=== PATIENT | female | born 1985 | race Asian ===

== ENCOUNTER 2025-04-28 11:10 | Inpatient (IN) ==
[2025-04-28] MEDS ORDERED: OXYTOCIN 30 UNITS/NSS 30 UNITS/500 ML BAG IV PRN (12:02)
[2025-04-28] MEDS ORDERED: LIDOCAINE 1% LOCAL 20 ML VIAL INFIL PRN (12:02)
[2025-04-28 12:37] LABS: Hematocrit (blood only) 32.8 % (37.0-47.0); Hemoglobin 11.2 g/dL (12.0-16.0); Mean Corpuscular Hemoglobin 30.6 pg (25.0-34.0); Mean Corpuscular Volume 89.6 fL (80.0-100.0); Platelet Count 163 K/uL (130-400); RDW Standard Deviation 40.3 fL (36.4-46.3); Red Blood Count 3.66 M/uL (4.20-5.40); White Blood Count 9.48 K/ul (4.8-10.8)
--- NOTE | 2025-04-28 13:05 | Procedure Note ---
Procedure Note Date of Service April 28, 2025 monitoring was used to ensure reassuring status. The patient was verbally consented for placement of a turner for cervical ripening, with discussion of risks, benefits and alternatives. All her questions were answered. Her legs were placed in lithotomy position. A lubricated, gloved hand was used to examine the cervix. A stylet was lubricated and inserted into a turner catheter to give it stiffness, and the turner catheter was then advanced along my fingers until it reached the external cervical os. The turner was then fed forward off of the stylet, which was itself never moved beyond the external os, such that the soft catheter advanced into the uterine cavity outside of the amnion until the balloon was definitely above the internal cervical os. The balloon was then inflated using sterile water to 30cc volume. Gentle traction was used to seat the balloon downward against the internal cervical os. Cervix was FT/TH/HI. EFW 6-7lb. My hand and the stylet were removed from the vagina, and the turner was secured to the patient's leg with a standard turner holding sticker. There was no significant bleeding or leakage of fluid. The heart tones remained reassuring after this process, which the patient tolerated well. Coding Additional Codes Date of Service ([email or web address])
[2025-04-28] MEDS: LACTATED RINGER'S 1,000 ML IV PRN (13:35)
[2025-04-28] MEDS: OXYTOCIN 30 UNITS/NSS 30 UNITS/500 ML BAG IV PRN (13:36)
[2025-04-28] MEDS ORDERED: LIDOCAINE 2%/EPINEPHRINE 1:200,000 20 ML PF ONE (18:40)
[2025-04-28] MEDS ORDERED: BUPIVACAINE 0.25% PF 30 ML VIAL ONE (18:40)
[2025-04-28] MEDS ORDERED: SODIUM CHLORIDE 0.9% PF INJ 10 ML VIAL EPI PRN (18:41)
[2025-04-28] MEDS ORDERED: ROPIVACAINE 0.5% PF 5 MG/ML 20 ML VIAL EPI PRN (18:41)
[2025-04-28] MEDS ORDERED: NALBUPHINE HCL INJ 10 MG/ML AMP IV PRN (18:41)
[2025-04-28] MEDS ORDERED: diphenhydrAMINE 50 MG/ML VIAL IV PRN (18:41)
[2025-04-28] MEDS ORDERED: LIDOCAINE 2% MPF LOCAL 5 ML VIAL EPI PRN (18:41)
[2025-04-28] MEDS ORDERED: BUPIVACAINE 0.25% PF 30 ML VIAL EPI PRN (18:41)
[2025-04-28] MEDS ORDERED: NALOXONE HCL 0.4 MG/1 ML VIAL/CARP IV PRN (18:41)
[2025-04-28] MEDS ORDERED: NALOXONE HCL 1 MG in SODIUM CHLORIDE 0.9% 1,000 ML IV PRN (18:41)
--- NOTE | 2025-04-28 18:41 | Anesthesiology Consultation ---
Date of Service April 28, 2025 Assessment & Plan (1) Encounter for pre-operative examination: Chart Review Chart Review: Patient NOT seen in Pre Admission Testing and Acceptable Risk for Labor Epidural Consults Requested none History Height/Weight Height: 5 ft 3.78 in Weight: 75.389 kg Allergies Allergy/AdvReac Type Severity Reaction Status Date / Time No Known Allergies Allergy Verified 04/28/25 12:29 Medications Home Medications Medication Instructions Recorded Confirmed Last Taken triamcinolone acetonide 0.1 % 1 applic topical DAILY #15 grams 12/21/24 04/27/25 Unknown topical cream gwqorutu-[id number]-FA 1 mg 1 tab PO DAILY 04/28/25 04/28/25 04/27/25 tablet Active Medications Generic Name Dose Route Start Last Admin Trade Name Freq PRN Reason Stop Dose Admin Oxytocin 30 units in 500 mls @ 2 mls/hr 04/28/25 12:02 04/28/25 18:10 Pitocin 30 Units/Nss IV 04/30/25 12:01 0.12 units/hr .Q24H PRN 2 mls/hr Labor Induction/Augmentation Titration Protocol 0.12 UNITS/HR Lactated Ringer's 1,000 mls @ 125 mls/hr 04/28/25 12:02 04/28/25 18:34 Lr IV 04/30/25 12:01 999 mls/hr .Q8H PRN Administration L&D Protocol Protocol Past Medical History Medical History Ovarian cyst Migraine No significant past medical history PT DENIES SIGNIFICANT PAST MED HX Past Family History Family History Mother No problems noted. Denies family history of Ovarian cancer Prostate cancer Breast cancer Colorectal cancer Uterine cancer Past Surgical History Surgical History History of gynecologic surgery surgery in [place] for "ovary" S/P dilation and curettage hysteroscopy, polypectomy Social History Smoking Status: Never smoker Do You Dip or Chew Tobacco: No Hx Alcohol Use: No Hx Substance Use: No substance use type: does not use Physical Exam Vital Signs Last Vital Signs Temp 98.6 F 04/28/25 15:30 Pulse 78 04/28/25 18:38 Resp 18 04/28/25 15:30 BP 107/61 04/28/25 18:27 Pulse Ox 98 04/28/25 18:38 Testing Laboratory Results 04/28/25 12:14
[2025-04-28] MEDS: fentANYL 2 MCG/ML BUPIVacaine 0.125%-NSS 100ML BAG EPI PRN (19:08)
[2025-04-28] MEDS: BUPIVACAINE 0.25% PF 30 ML VIAL EPI STA (19:10)
[2025-04-28] MEDS: LIDOCAINE 2%/EPINEPHRINE 1:200,000 20 ML PF EPI STA (19:10)
[2025-04-28] MEDS: fentANYL 2 MCG/ML BUPIVacaine 0.125%-NSS 100ML BAG ONE (19:53)
--- NOTE | 2025-04-29 03:03 | Obstetrical Progress Note ---
Date of Service April 29, 2025 Assessment & Plan (1) Encounter for induction of labor: Plan Continue pitocin. Goal MVU 200-250. Cont epidural, pt comfortable. Admission and Anticipated Discharge Date Admission Date: April 28, 2025 Subjective Patient's turner came out around the time her epidural went in, and pitocin was then raised to 18 per protocol. Contractions have been difficult to track per RN. IUPC requested. Physical Exam Genitourinary: /-2 LOF clear / small bloody show FHT Cat 1 [place] Q2-3, MVU appear adequate Pit @ 18 Results & Data Vital Signs (Past 12 Hours) Vital Signs Temp Pulse Resp BP Pulse Ox 04/29/25 02:58 83 98 04/29/25 02:53 80 99 04/29/25 02:48 100 04/29/25 02:48 85 04/29/25 02:48 73 89/55 L 04/29/25 02:43 78 95 04/29/25 02:38 77 96 04/29/25 02:33 81 96 04/29/25 02:32 83 94/52 L 04/29/25 02:28 85 99 04/29/25 02:23 77 98 04/29/25 02:19 75 93/52 L 04/29/25 02:18 75 98 04/29/25 02:13 76 98 04/29/25 02:08 75 98 04/29/25 02:03 74 98 04/29/25 02:02 75 93/55 L 04/29/25 01:58 77 97 04/29/25 01:53 76 98 04/29/25 01:48 98 04/29/25 01:48 75 04/29/25 01:48 72 88/50 L 04/29/25 01:43 77 98 04/29/25 01:38 77 97 04/29/25 01:33 97 04/29/25 01:33 88 04/29/25 01:33 83 96/55 L 04/29/25 01:28 78 95 04/29/25 01:23 75 98 04/29/25 01:19 81 92/50 L 04/29/25 01:18 78 98 04/29/25 01:13 85 98 04/29/25 01:08 80 97 04/29/25 01:06 77 92/47 L 04/29/25 01:03 91 H 98 04/29/25 00:58 74 97 04/29/25 00:53 86 98 04/29/25 00:49 75 103/53 L 04/29/25 00:48 75 98 04/29/25 00:43 73 97 04/29/25 00:38 77 98 04/29/25 00:33 73 97 04/29/25 00:32 74 103/55 L 04/29/25 00:28 76 96 04/29/25 00:23 74 96 04/29/25 00:18 72 108/58 L 99 04/29/25 00:13 72 96 04/29/25 00:08 73 97 04/29/25 00:03 98 04/29/25 00:03 74 04/29/25 00:03 76 96/57 L 04/28/25 23:58 79 98 04/28/25 23:53 78 98 04/28/25 23:48 98 04/28/25 23:48 77 04/28/25 23:48 73 113/59 L 04/28/25 23:43 77 99 04/28/25 23:38 75 98 04/28/25 23:35 71 112/59 L 04/28/25 23:33 76 97 04/28/25 23:28 75 97 04/28/25 23:23 95 H 97 04/28/25 23:18 98 04/28/25 23:18 75 04/28/25 23:18 73 101/50 L 04/28/25 23:13 76 99 04/28/25 23:08 89 100 04/28/25 23:04 74 99/58 L 04/28/25 23:03 76 99 04/28/25 23:02 18 04/28/25 23:02 99.1 F 18 04/28/25 22:58 73 98 04/28/25 22:53 78 99 04/28/25 22:48 77 99 04/28/25 22:43 75 98 04/28/25 22:38 76 99 04/28/25 22:33 76 103/54 L 98 04/28/25 22:28 84 98 04/28/25 22:23 75 98 04/28/25 22:18 99 04/28/25 22:18 73 04/28/25 22:18 75 101/58 L 04/28/25 22:13 74 100 04/28/25 22:08 76 99 04/28/25 22:03 80 98 04/28/25 21:58 76 97 04/28/25 21:53 74 98 04/28/25 21:48 73 98 04/28/25 21:43 77 98 04/28/25 21:38 74 99 04/28/25 21:34 71 103/57 L 04/28/25 21:33 72 98 04/28/25 21:28 73 97 04/28/25 21:23 96 H 98 04/28/25 21:18 99 04/28/25 21:18 76 04/28/25 21:18 73 104/61 04/28/25 21:13 73 98 04/28/25 21:08 74 99 04/28/25 21:03 68 104/55 L 98 04/28/25 20:58 75 100 04/28/25 20:53 73 100 04/28/25 20:48 70 100/52 L 100 04/28/25 20:43 73 99 04/28/25 20:38 79 100 04/28/25 20:33 77 100 04/28/25 20:32 71 107/61 04/28/25 20:28 74 99 04/28/25 20:23 78 98 04/28/25 20:18 75 99 04/28/25 20:17 74 108/57 L 04/28/25 20:13 71 97 04/28/25 20:08 79 97 04/28/25 20:03 77 98 04/28/25 20:02 75 104/58 L 04/28/25 19:58 75 97 04/28/25 19:53 71 97 04/28/25 19:48 78 97 04/28/25 19:47 80 101/56 L 04/28/25 19:43 78 101/57 L 98 04/28/25 19:38 82 99 04/28/25 19:37 71 100/57 L 04/28/25 19:33 98 04/28/25 19:33 79 04/28/25 19:33 74 104/60 04/28/25 19:28 78 98 04/28/25 19:26 80 110/65 12/12/25 19:25 76 105/59 L 04/28/25 19:23 77 98 04/28/25 19:22 82 106/60 04/28/25 19:20 79 102/61 04/28/25 19:18 82 107/64 96 04/28/25 19:17 76 102/55 L 04/28/25 19:15 99.0 F 18 04/28/25 19:15 77 104/54 L 04/28/25 19:13 87 98 04/28/25 19:12 89 98/55 L 04/28/25 19:11 76 107/53 L 04/28/25 19:09 90 103/61 04/28/25 19:08 90 97 04/28/25 19:06 90 103/64 04/28/25 19:03 83 99 04/28/25 18:58 83 100 04/28/25 18:48 80 99 04/28/25 18:43 82 98 04/28/25 18:38 78 98 04/28/25 18:33 79 98 04/28/25 18:28 80 99 04/28/25 18:27 81 107/61 04/28/25 15:32 83 100/57 L 04/28/25 15:30 18 04/28/25 15:30 98.6 F 18 PG Care Time/CCT Total # of Minutes Spent Total Time Spent with Patient: Total time spent is greater than 50% in coordination of care (as documented) at patient's floor/unit and/or counseling patient: Coding Level of Care Code None Diagnoses Encounter for induction of labor Z34.90
--- NOTE | 2025-04-29 06:46 | Labor Progress Brief Note ---
Date of Service April 29, 2025 Subjective Patient comfortable with epidural. Assessment & Plan (1) Encounter for induction of labor: Plan: Minimal cervical change. Multip patient. Forebag cleared. Cut pit in 05/19 and re-climb to adequate RVU. Admission and Anticipated Discharge Date Admission Date: April 28, 2025 Physical Exam Genitourinary: Cervix unchanged IUPC in place but forebag palpable, ruptured, clear Ctx frequency decreased though individual ctx strength still good FHT Cat 1 Pit @ 20 Results & Data Vital Signs (Past 12 Hours) Vital Signs Temp Pulse Resp BP Pulse Ox 04/29/25 06:38 79 98 04/29/25 06:33 99 04/29/25 06:33 80 04/29/25 06:33 78 84/50 L 04/29/25 06:28 79 96 04/29/25 06:23 76 96 04/29/25 06:18 76 97 04/29/25 06:17 75 90/55 L 04/29/25 06:13 81 98 04/29/25 06:08 69 96 04/29/25 06:03 75 97 04/29/25 06:02 70 93/51 L 04/29/25 06:00 18 04/29/25 06:00 99.0 F 18 04/29/25 05:58 70 97 04/29/25 05:56 70 93 04/29/25 05:53 72 96 04/29/25 05:49 70 89/53 L 04/29/25 05:48 69 98 04/29/25 05:43 70 96 04/29/25 05:38 72 97 04/29/25 05:34 68 89/52 L 04/29/25 05:33 67 97 04/29/25 05:28 71 96 04/29/25 05:23 70 96 04/29/25 05:18 70 95 04/29/25 05:17 68 94/50 L 04/29/25 05:13 70 96 04/29/25 05:08 71 96 04/29/25 05:03 70 97 04/29/25 05:02 68 94/51 L 04/29/25 04:58 69 97 04/29/25 04:53 70 95 04/29/25 04:48 96 04/29/25 04:48 71 04/29/25 04:48 71 97/56 L 04/29/25 04:43 73 96 04/29/25 04:38 71 97 04/29/25 04:33 73 98 04/29/25 04:29 75 94 04/29/25 04:28 76 95 04/29/25 04:23 73 95 04/29/25 04:18 72 95 04/29/25 04:17 73 104/56 L 04/29/25 04:13 71 96 04/29/25 04:08 72 97 04/29/25 04:04 69 101/56 L 04/29/25 04:03 70 98 04/29/25 04:00 18 04/29/25 04:00 98.8 F 18 04/29/25 03:58 71 96 04/29/25 03:53 73 96 04/29/25 03:48 71 97 04/29/25 03:47 68 98/54 L 04/29/25 03:43 72 96 04/29/25 03:38 72 97 04/29/25 03:33 98 04/29/25 03:33 71 04/29/25 03:33 70 99/55 L 04/29/25 03:28 73 96 04/29/25 03:23 71 97 04/29/25 03:18 71 100/59 L 98 04/29/25 03:13 74 97 04/29/25 03:08 79 98 04/29/25 03:04 88 144/64 H 04/29/25 03:03 89 98 04/29/25 02:58 83 98 04/29/25 02:53 80 99 04/29/25 02:48 100 04/29/25 02:48 85 04/29/25 02:48 73 89/55 L 04/29/25 02:43 78 95 04/29/25 02:38 77 96 04/29/25 02:33 81 96 04/29/25 02:32 83 94/52 L 04/29/25 02:28 85 99 04/29/25 02:23 77 98 04/29/25 02:19 75 93/52 L 04/29/25 02:18 75 98 04/29/25 02:13 76 98 04/29/25 02:08 75 98 04/29/25 02:03 74 98 04/29/25 02:02 75 93/55 L 04/29/25 01:58 77 97 04/29/25 01:53 76 98 04/29/25 01:48 98 04/29/25 01:48 75 04/29/25 01:48 72 88/50 L 04/29/25 01:43 77 98 04/29/25 01:38 77 97 04/29/25 01:33 97 04/29/25 01:33 88 04/29/25 01:33 83 96/55 L 04/29/25 01:28 78 95 04/29/25 01:23 75 98 04/29/25 01:19 81 92/50 L 04/29/25 01:18 78 98 04/29/25 01:13 85 98 04/29/25 01:08 80 97 04/29/25 01:06 77 92/47 L 04/29/25 01:03 91 H 98 04/29/25 00:58 74 97 04/29/25 00:53 86 98 04/29/25 00:49 75 103/53 L 04/29/25 00:48 75 98 04/29/25 00:43 73 97 04/29/25 00:38 77 98 04/29/25 00:33 73 97 04/29/25 00:32 74 103/55 L 04/29/25 00:28 76 96 04/29/25 00:23 74 96 04/29/25 00:18 72 108/58 L 99 04/29/25 00:13 72 96 04/29/25 00:08 73 97 04/29/25 00:03 98 04/29/25 00:03 74 04/29/25 00:03 76 96/57 L 04/28/25 23:58 79 98 04/28/25 23:53 78 98 04/28/25 23:48 98 04/28/25 23:48 77 04/28/25 23:48 73 113/59 L 04/28/25 23:43 77 99 04/28/25 23:38 75 98 04/28/25 23:35 71 112/59 L 04/28/25 23:33 76 97 04/28/25 23:28 75 97 04/28/25 23:23 95 H 97 04/28/25 23:18 98 04/28/25 23:18 75 04/28/25 23:18 73 101/50 L 04/28/25 23:13 76 99 04/28/25 23:08 89 100 04/28/25 23:04 74 99/58 L 04/28/25 23:03 76 99 04/28/25 23:02 18 04/28/25 23:02 99.1 F 18 04/28/25 22:58 73 98 04/28/25 22:53 78 99 04/28/25 22:48 77 99 04/28/25 22:43 75 98 04/28/25 22:38 76 99 04/28/25 22:33 76 103/54 L 98 04/28/25 22:28 84 98 04/28/25 22:23 75 98 04/28/25 22:18 99 04/28/25 22:18 73 04/28/25 22:18 75 101/58 L 04/28/25 22:13 74 100 04/28/25 22:08 76 99 04/28/25 22:03 80 98 04/28/25 21:58 76 97 04/28/25 21:53 74 98 04/28/25 21:48 73 98 04/28/25 21:43 77 98 04/28/25 21:38 74 99 04/28/25 21:34 71 103/57 L 04/28/25 21:33 72 98 04/28/25 21:28 73 97 04/28/25 21:23 96 H 98 04/28/25 21:18 99 04/28/25 21:18 76 04/28/25 21:18 73 104/61 04/28/25 21:13 73 98 04/28/25 21:08 74 99 04/28/25 21:03 68 104/55 L 98 04/28/25 20:58 75 100 04/28/25 20:53 73 100 04/28/25 20:48 70 100/52 L 100 04/28/25 20:43 73 99 04/28/25 20:38 79 100 04/28/25 20:33 77 100 04/28/25 20:32 71 107/61 04/28/25 20:28 74 99 04/28/25 20:23 78 98 04/28/25 20:18 75 99 04/28/25 20:17 74 108/57 L 04/28/25 20:13 71 97 04/28/25 20:08 79 97 04/28/25 20:03 77 98 04/28/25 20:02 75 104/58 L 04/28/25 19:58 75 97 04/28/25 19:53 71 97 04/28/25 19:48 78 97 04/28/25 19:47 80 101/56 L 04/28/25 19:43 78 101/57 L 98 04/28/25 19:38 82 99 04/28/25 19:37 71 100/57 L 04/28/25 19:33 98 04/28/25 19:33 79 04/28/25 19:33 74 104/60 04/28/25 19:28 78 98 04/28/25 19:26 80 110/65 04/28/25 19:25 76 105/59 L 04/28/25 19:23 77 98 04/28/25 19:22 82 106/60 04/28/25 19:20 79 102/61 04/28/25 19:18 82 107/64 96 04/28/25 19:17 76 102/55 L 04/28/25 19:15 99.0 F 18 04/28/25 19:15 77 104/54 L 04/28/25 19:13 87 98 04/28/25 19:12 89 98/55 L 04/28/25 19:11 76 107/53 L 04/28/25 19:09 90 103/61 04/28/25 19:08 90 97 04/28/25 19:06 90 103/64 04/28/25 19:03 83 99 04/28/25 18:58 83 100 04/28/25 18:48 80 99 Coding Level of Care Code None Diagnoses Encounter for induction of labor Z34.90
--- NOTE | 2025-04-29 10:56 | Labor Progress Brief Note ---
Date of Service April 29, 2025 Subjective comfortable Assessment & Plan (1) Encounter for induction of labor: (2) Elderly multigravida: Plan May be some small changed. ctx not yet adequate but close. Will continue to increase pitocin. fetus category one. Patient has a very small pelvis. She notes that her last delivery was just over 5# and she delivered it breech?? Concerned about pelvis, but continue current management plan. Admission and Anticipated Discharge Date Admission Date: April 28, 2025 Physical Exam Physical Exam: cx--4/75/-2 toco--q2-4 min, pit at 20, not quite adequate yet. efm--150s with mod variability, small accels , no decels Results & Data Vital Signs (Past 12 Hours) Vital Signs Temp Pulse Resp BP Pulse Ox Pulse Ox O2 Del Method 04/29/25 10:48 81 102/60 99 04/29/25 10:43 82 97 04/29/25 10:38 78 97 04/29/25 10:34 81 94/53 L 04/29/25 10:33 81 97 04/29/25 10:28 88 98 04/29/25 10:23 79 97 04/29/25 10:18 97 04/29/25 10:18 88 04/29/25 10:18 80 102/57 L 04/29/25 10:13 85 97 04/29/25 10:08 87 98 04/29/25 10:03 96 04/29/25 10:03 79 04/29/25 10:03 76 100/58 L 04/29/25 09:58 75 97 04/29/25 09:53 78 96 04/29/25 09:48 96 04/29/25 09:48 78 04/29/25 09:48 76 102/67 04/29/25 09:43 77 96 04/29/25 09:38 80 96 04/29/25 09:33 81 98 04/29/25 09:28 94 H 98 04/29/25 09:23 80 96 04/29/25 09:18 96 04/29/25 09:18 82 04/29/25 09:18 80 86/49 L 04/29/25 09:13 81 96 04/29/25 09:08 82 96 04/29/25 09:03 82 96 04/29/25 09:02 76 93/52 L 04/29/25 08:58 84 95 04/29/25 08:53 85 97 04/29/25 08:49 80 89/50 L 04/29/25 08:48 78 97 04/29/25 08:43 79 95 04/29/25 08:38 84 96 04/29/25 08:33 85 96 04/29/25 08:32 81 92/51 L 04/29/25 08:28 84 96 04/29/25 08:23 84 96 04/29/25 08:18 86 96 04/29/25 08:17 80 102/51 L 04/29/25 08:13 83 96 04/29/25 08:08 88 95 04/29/25 08:03 96 04/29/25 08:03 91 H 04/29/25 08:03 84 100/50 L 04/29/25 07:58 86 98 04/29/25 07:57 97 H 83/50 L 04/29/25 07:53 76 97 04/29/25 07:52 74 84/51 L 04/29/25 07:49 75 79/45 L 04/29/25 07:48 75 97 04/29/25 07:43 78 96 04/29/25 07:38 77 96 04/29/25 07:33 96 04/29/25 07:33 76 04/29/25 07:33 73 87/50 L 04/29/25 07:28 79 97 04/29/25 07:23 80 98 04/29/25 07:18 79 97 04/29/25 07:17 76 97/55 L 04/29/25 07:13 97 04/29/25 07:13 77 97 04/29/25 07:11 36.4 C L Room Air 04/29/25 07:08 77 98 04/29/25 07:03 83 98 04/29/25 07:02 72 95/52 L 04/29/25 06:58 74 97 04/29/25 06:53 72 97 04/29/25 06:48 98 04/29/25 06:48 73 04/29/25 06:48 75 102/56 L 04/29/25 06:43 74 99 04/29/25 06:38 79 98 04/29/25 06:33 99 04/29/25 06:33 80 04/29/25 06:33 78 84/50 L 04/29/25 06:28 79 96 04/29/25 06:23 76 96 04/29/25 06:18 76 97 04/29/25 06:17 75 90/55 L 04/29/25 06:13 81 98 04/29/25 06:08 69 96 04/29/25 06:03 75 97 04/29/25 06:02 70 93/51 L 04/29/25 06:00 18 04/29/25 06:00 37.2 C 18 04/29/25 05:58 70 97 04/29/25 05:56 70 93 04/29/25 05:53 72 96 04/29/25 05:49 70 89/53 L 04/29/25 05:48 69 98 04/29/25 05:43 70 96 04/29/25 05:38 72 97 04/29/25 05:34 68 89/52 L 04/29/25 05:33 67 97 04/29/25 05:28 71 96 04/29/25 05:23 70 96 04/29/25 05:18 70 95 04/29/25 05:17 68 94/50 L 04/29/25 05:13 70 96 04/29/25 05:08 71 96 04/29/25 05:03 70 97 04/29/25 05:02 68 94/51 L 04/29/25 04:58 69 97 04/29/25 04:53 70 95 04/29/25 04:48 96 04/29/25 04:48 71 04/29/25 04:48 71 97/56 L 04/29/25 04:43 73 96 04/29/25 04:38 71 97 04/29/25 04:33 73 98 04/29/25 04:29 75 94 04/29/25 04:28 76 95 04/29/25 04:23 73 95 04/29/25 04:18 72 95 04/29/25 04:17 73 104/56 L 04/29/25 04:13 71 96 04/29/25 04:08 72 97 04/29/25 04:04 69 101/56 L 04/29/25 04:03 70 98 04/29/25 04:00 18 04/29/25 04:00 37.1 C 18 04/29/25 03:58 71 96 04/29/25 03:53 73 96 04/29/25 03:48 71 97 04/29/25 03:47 68 98/54 L 04/29/25 03:43 72 96 04/29/25 03:38 72 97 04/29/25 03:33 98 04/29/25 03:33 71 04/29/25 03:33 70 99/55 L 04/29/25 03:28 73 96 04/29/25 03:23 71 97 04/29/25 03:18 71 100/59 L 98 04/29/25 03:13 74 97 04/29/25 03:08 79 98 04/29/25 03:04 88 144/64 H 04/29/25 03:03 89 98 04/29/25 02:58 83 98 04/29/25 02:53 80 99 04/29/25 02:48 100 04/29/25 02:48 85 04/29/25 02:48 73 89/55 L 04/29/25 02:43 78 95 04/29/25 02:38 77 96 04/29/25 02:33 81 96 04/29/25 02:32 83 94/52 L 04/29/25 02:28 85 99 04/29/25 02:23 77 98 04/29/25 02:19 75 93/52 L 04/29/25 02:18 75 98 04/29/25 02:13 76 98 04/29/25 02:08 75 98 04/29/25 02:03 74 98 04/29/25 02:02 75 93/55 L 04/29/25 01:58 77 97 04/29/25 01:53 76 98 04/29/25 01:48 98 04/29/25 01:48 75 04/29/25 01:48 72 88/50 L 04/29/25 01:43 77 98 04/29/25 01:38 77 97 04/29/25 01:33 97 04/29/25 01:33 88 04/29/25 01:33 83 96/55 L 04/29/25 01:28 78 95 04/29/25 01:23 75 98 04/29/25 01:19 81 92/50 L 04/29/25 01:18 78 98 04/29/25 01:13 85 98 04/29/25 01:08 80 97 04/29/25 01:06 77 92/47 L 04/29/25 01:03 91 H 98 04/29/25 00:58 74 97 04/29/25 00:53 86 98 04/29/25 00:49 75 103/53 L 04/29/25 00:48 75 98 04/29/25 00:43 73 97 04/29/25 00:38 77 98 04/29/25 00:33 73 97 04/29/25 00:32 74 103/55 L 04/29/25 00:28 76 96 04/29/25 00:23 74 96 04/29/25 00:18 72 108/58 L 99 04/29/25 00:13 72 96 04/29/25 00:08 73 97 04/29/25 00:03 98 04/29/25 00:03 74 04/29/25 00:03 76 96/57 L 04/28/25 23:58 79 98 04/28/25 23:53 78 98 04/28/25 23:48 98 04/28/25 23:48 77 04/28/25 23:48 73 113/59 L 04/28/25 23:43 77 99 04/28/25 23:38 75 98 04/28/25 23:35 71 112/59 L 04/28/25 23:33 76 97 04/28/25 23:28 75 97 04/28/25 23:23 95 H 97 04/28/25 23:18 98 04/28/25 23:18 75 04/28/25 23:18 73 101/50 L 04/28/25 23:13 76 99 04/28/25 23:08 89 100 04/28/25 23:04 74 99/58 L 04/28/25 23:03 76 99 04/28/25 23:02 18 04/28/25 23:02 37.3 C 18 04/28/25 22:58 73 98 O2 Del Method 04/29/25 10:48 04/29/25 10:43 04/29/25 10:38 04/29/25 10:34 04/29/25 10:33 04/29/25 10:28 04/29/25 10:23 04/29/25 10:18 04/29/25 10:18 04/29/25 10:18 04/29/25 10:13 04/29/25 10:08 04/29/25 10:03 04/29/25 10:03 04/29/25 10:03 04/29/25 09:58 04/29/25 09:53 04/29/25 09:48 04/29/25 09:48 04/29/25 09:48 04/29/25 09:43 04/29/25 09:38 04/29/25 09:33 04/29/25 09:28 04/29/25 09:23 04/29/25 09:18 04/29/25 09:18 04/29/25 09:18 04/29/25 09:13 04/29/25 09:08 04/29/25 09:03 04/29/25 09:02 04/29/25 08:58 04/29/25 08:53 04/29/25 08:49 04/29/25 08:48 04/29/25 08:43 04/29/25 08:38 04/29/25 08:33 04/29/25 08:32 04/29/25 08:28 04/29/25 08:23 04/29/25 08:18 04/29/25 08:17 04/29/25 08:13 04/29/25 08:08 04/29/25 08:03 04/29/25 08:03 04/29/25 08:03 04/29/25 07:58 04/29/25 07:57 04/29/25 07:53 04/29/25 07:52 04/29/25 07:49 04/29/25 07:48 04/29/25 07:43 04/29/25 07:38 04/29/25 07:33 04/29/25 07:33 04/29/25 07:33 04/29/25 07:28 04/29/25 07:23 04/29/25 07:18 04/29/25 07:17 04/29/25 07:13 Room Air 04/29/25 07:13 04/29/25 07:11 04/29/25 07:08 04/29/25 07:03 04/29/25 07:02 04/29/25 06:58 04/29/25 06:53 04/29/25 06:48 04/29/25 06:48 04/29/25 06:48 04/29/25 06:43 04/29/25 06:38 04/29/25 06:33 04/29/25 06:33 04/29/25 06:33 04/29/25 06:28 04/29/25 06:23 04/29/25 06:18 04/29/25 06:17 04/29/25 06:13 04/29/25 06:08 04/29/25 06:03 04/29/25 06:02 04/29/25 06:00 04/29/25 06:00 04/29/25 05:58 04/29/25 05:56 04/29/25 05:53 04/29/25 05:49 04/29/25 05:48 04/29/25 05:43 04/29/25 05:38 04/29/25 05:34 04/29/25 05:33 04/29/25 05:28 04/29/25 05:23 04/29/25 05:18 04/29/25 05:17 04/29/25 05:13 04/29/25 05:08 04/29/25 05:03 04/29/25 05:02 04/29/25 04:58 04/29/25 04:53 04/29/25 04:48 04/29/25 04:48 04/29/25 04:48 04/29/25 04:43 04/29/25 04:38 04/29/25 04:33 04/29/25 04:29 04/29/25 04:28 04/29/25 04:23 04/29/25 04:18 04/29/25 04:17 04/29/25 04:13 04/29/25 04:08 04/29/25 04:04 04/29/25 04:03 04/29/25 04:00 04/29/25 04:00 04/29/25 03:58 04/29/25 03:53 04/29/25 03:48 04/29/25 03:47 04/29/25 03:43 04/29/25 03:38 04/29/25 03:33 04/29/25 03:33 04/29/25 03:33 04/29/25 03:28 04/29/25 03:23 04/29/25 03:18 04/29/25 03:13 04/29/25 03:08 04/29/25 03:04 04/29/25 03:03 04/29/25 02:58 04/29/25 02:53 04/29/25 02:48 04/29/25 02:48 04/29/25 02:48 04/29/25 02:43 04/29/25 02:38 04/29/25 02:33 04/29/25 02:32 04/29/25 02:28 04/29/25 02:23 04/29/25 02:19 04/29/25 02:18 04/29/25 02:13 04/29/25 02:08 04/29/25 02:03 04/29/25 02:02 04/29/25 01:58 04/29/25 01:53 04/29/25 01:48 04/29/25 01:48 04/29/25 01:48 04/29/25 01:43 04/29/25 01:38 04/29/25 01:33 04/29/25 01:33 04/29/25 01:33 04/29/25 01:28 04/29/25 01:23 04/29/25 01:19 04/29/25 01:18 04/29/25 01:13 04/29/25 01:08 04/29/25 01:06 04/29/25 01:03 04/29/25 00:58 04/29/25 00:53 04/29/25 00:49 04/29/25 00:48 04/29/25 00:43 04/29/25 00:38 04/29/25 00:33 04/29/25 00:32 04/29/25 00:28 04/29/25 00:23 04/29/25 00:18 04/29/25 00:13 04/29/25 00:08 04/29/25 00:03 04/29/25 00:03 04/29/25 00:03 04/28/25 23:58 04/28/25 23:53 04/28/25 23:48 04/28/25 23:48 04/28/25 23:48 04/28/25 23:43 04/28/25 23:38 04/28/25 23:35 04/28/25 23:33 04/28/25 23:28 04/28/25 23:23 04/28/25 23:18 04/28/25 23:18 04/28/25 23:18 04/28/25 23:13 04/28/25 23:08 04/28/25 23:04 04/28/25 23:03 04/28/25 23:02 04/28/25 23:02 04/28/25 22:58 Coding Level of Care Code None Diagnoses Encounter for induction of labor Z34.90 Elderly multigravida [id number]
--- NOTE | 2025-04-29 15:33 | Labor Progress Brief Note ---
Date of Service April 29, 2025 Subjective comfortable now no longer having contractions Assessment & Plan (1) Encounter for induction of labor: Plan discussed the situation with the patient and her partner using the interpreter deaf. Remote from delivery, fetus high, baby bigger, small pelvis 1. Trial pitocin again understanding this may well happen again with the lates and if so, would proceed with c/s. 2. proceed with c/s now. They desire another trial of pitocin. Will start at 1 and go up by one. Understand will proceed with operative delivery if nrfht. Questions answered with interpreter deaf to the best of my ability. Admission and Anticipated Discharge Date Admission Date: April 28, 2025 Physical Exam Physical Exam: cx--/-2 per nursing toco--rare efm--150s with mod variability, accels to 160s prior to pit off and pit was at 18, ctx not adequate, fht 150s with min to mod variability and intermittent late decelerations, not with >50% of contractions, intermittent. Resolved with d/c of pitocin and subsequently contractions. Results & Data Vital Signs (Past 12 Hours) Vital Signs Temp Pulse Resp BP Pulse Ox Pulse Ox O2 Del Method 04/29/25 15:28 81 98 04/29/25 15:23 84 99 04/29/25 15:18 77 97 04/29/25 15:13 77 96 04/29/25 15:08 77 98 04/29/25 15:03 98 04/29/25 15:03 76 04/29/25 15:03 75 98/53 L 04/29/25 14:58 76 98 04/29/25 14:53 78 97 04/29/25 14:48 76 98 04/29/25 14:43 82 98 04/29/25 14:38 90 98 04/29/25 14:33 76 99 04/29/25 14:28 73 99 04/29/25 14:23 73 99 04/29/25 14:18 97 04/29/25 14:18 70 04/29/25 14:18 70 100/60 04/29/25 14:13 70 97 04/29/25 14:08 71 97 04/29/25 14:03 70 97 04/29/25 13:58 73 96 04/29/25 13:53 71 98 04/29/25 13:48 99 04/29/25 13:48 72 04/29/25 13:48 77 107/52 L 04/29/25 13:43 84 98 04/29/25 13:38 70 97 04/29/25 13:33 70 95/54 L 96 04/29/25 13:28 74 97 04/29/25 13:23 72 98 04/29/25 13:18 97 04/29/25 13:18 79 04/29/25 13:18 76 114/60 04/29/25 13:13 75 98 04/29/25 13:08 76 98 04/29/25 13:04 82 124/56 L 04/29/25 13:03 80 98 04/29/25 13:00 36.7 C 04/29/25 12:58 76 100 04/29/25 12:53 75 98 04/29/25 12:48 87 100 04/29/25 12:47 69 103/59 L 04/29/25 12:43 73 99 04/29/25 12:38 76 98 04/29/25 12:34 74 102/58 L 04/29/25 12:33 74 99 04/29/25 12:28 75 98 04/29/25 12:23 75 97 04/29/25 12:18 72 97 04/29/25 12:17 71 109/58 L 04/29/25 12:13 72 97 04/29/25 12:08 77 97 04/29/25 12:04 72 100/58 L 04/29/25 12:03 72 98 04/29/25 11:58 77 97 04/29/25 11:53 76 98 04/29/25 11:48 76 98 04/29/25 11:47 79 97/52 L 04/29/25 11:43 79 98 04/29/25 11:38 86 97 04/29/25 11:33 79 98 04/29/25 11:32 75 104/61 04/29/25 11:30 36.7 C 04/29/25 11:28 77 96 04/29/25 11:23 78 97 04/29/25 11:18 75 97 04/29/25 11:17 74 106/60 04/29/25 11:13 75 97 04/29/25 11:08 76 97 04/29/25 11:03 76 98 04/29/25 11:02 74 105/58 L 04/29/25 10:58 79 97 04/29/25 10:53 83 98 04/29/25 10:48 81 102/60 99 04/29/25 10:43 82 97 04/29/25 10:38 78 97 04/29/25 10:34 81 94/53 L 04/29/25 10:33 81 97 04/29/25 10:28 88 98 04/29/25 10:23 79 97 04/29/25 10:18 97 04/29/25 10:18 88 04/29/25 10:18 80 102/57 L 04/29/25 10:13 85 97 04/29/25 10:08 87 98 04/29/25 10:03 96 04/29/25 10:03 79 04/29/25 10:03 76 100/58 L 04/29/25 09:58 75 97 04/29/25 09:53 78 96 04/29/25 09:48 96 04/29/25 09:48 78 04/29/25 09:48 76 102/67 04/29/25 09:43 77 96 04/29/25 09:38 80 96 04/29/25 09:33 81 98 04/29/25 09:28 94 H 98 04/29/25 09:23 80 96 04/29/25 09:18 96 04/29/25 09:18 82 04/29/25 09:18 80 86/49 L 04/29/25 09:13 81 96 04/29/25 09:08 82 96 04/29/25 09:03 82 96 04/29/25 09:02 76 93/52 L 04/29/25 09:00 36.7 C 04/29/25 08:58 84 95 04/29/25 08:53 85 97 04/29/25 08:49 80 89/50 L 04/29/25 08:48 78 97 04/29/25 08:43 79 95 04/29/25 08:38 84 96 04/29/25 08:33 85 96 04/29/25 08:32 81 92/51 L 04/29/25 08:28 84 96 04/29/25 08:23 84 96 04/29/25 08:18 86 96 04/29/25 08:17 80 102/51 L 04/29/25 08:13 83 96 04/29/25 08:08 88 95 04/29/25 08:03 96 04/29/25 08:03 91 H 04/29/25 08:03 84 100/50 L 04/29/25 07:58 86 98 04/29/25 07:57 97 H 83/50 L 04/29/25 07:53 76 97 04/29/25 07:52 74 84/51 L 04/29/25 07:49 75 79/45 L 04/29/25 07:48 75 97 04/29/25 07:43 78 96 04/29/25 07:38 77 96 04/29/25 07:33 96 04/29/25 07:33 76 04/29/25 07:33 73 87/50 L 04/29/25 07:28 79 97 04/29/25 07:23 80 98 04/29/25 07:18 79 97 04/29/25 07:17 76 97/55 L 04/29/25 07:13 97 04/29/25 07:13 77 97 04/29/25 07:11 36.4 C L Room Air 04/29/25 07:08 77 98 04/29/25 07:03 83 98 04/29/25 07:02 72 95/52 L 04/29/25 06:58 74 97 04/29/25 06:53 72 97 04/29/25 06:48 98 04/29/25 06:48 73 04/29/25 06:48 75 102/56 L 04/29/25 06:43 74 99 04/29/25 06:38 79 98 04/29/25 06:33 99 04/29/25 06:33 80 04/29/25 06:33 78 84/50 L 04/29/25 06:28 79 96 04/29/25 06:23 76 96 04/29/25 06:18 76 97 04/29/25 06:17 75 90/55 L 04/29/25 06:13 81 98 04/29/25 06:08 69 96 04/29/25 06:03 75 97 04/29/25 06:02 70 93/51 L 04/29/25 06:00 18 04/29/25 06:00 37.2 C 18 04/29/25 05:58 70 97 04/29/25 05:56 70 93 04/29/25 05:53 72 96 04/29/25 05:49 70 89/53 L 04/29/25 05:48 69 98 04/29/25 05:43 70 96 04/29/25 05:38 72 97 04/29/25 05:34 68 89/52 L 04/29/25 05:33 67 97 04/29/25 05:28 71 96 04/29/25 05:23 70 96 04/29/25 05:18 70 95 04/29/25 05:17 68 94/50 L 04/29/25 05:13 70 96 04/29/25 05:08 71 96 04/29/25 05:03 70 97 04/29/25 05:02 68 94/51 L 04/29/25 04:58 69 97 04/29/25 04:53 70 95 04/29/25 04:48 96 04/29/25 04:48 71 04/29/25 04:48 71 97/56 L 04/29/25 04:43 73 96 04/29/25 04:38 71 97 04/29/25 04:33 73 98 04/29/25 04:29 75 94 04/29/25 04:28 76 95 04/29/25 04:23 73 95 04/29/25 04:18 72 95 04/29/25 04:17 73 104/56 L 04/29/25 04:13 71 96 04/29/25 04:08 72 97 04/29/25 04:04 69 101/56 L 04/29/25 04:03 70 98 04/29/25 04:00 18 04/29/25 04:00 37.1 C 18 04/29/25 03:58 71 96 04/29/25 03:53 73 96 04/29/25 03:48 71 97 04/29/25 03:47 68 98/54 L 04/29/25 03:43 72 96 04/29/25 03:38 72 97 04/29/25 03:33 98 04/29/25 03:33 71 04/29/25 03:33 70 99/55 L O2 Del Method 04/29/25 15:28 04/29/25 15:23 04/29/25 15:18 04/29/25 15:13 04/29/25 15:08 04/29/25 15:03 04/29/25 15:03 04/29/25 15:03 04/29/25 14:58 04/29/25 14:53 04/29/25 14:48 04/29/25 14:43 04/29/25 14:38 04/29/25 14:33 04/29/25 14:28 04/29/25 14:23 04/29/25 14:18 04/29/25 14:18 04/29/25 14:18 04/29/25 14:13 04/29/25 14:08 04/29/25 14:03 04/29/25 13:58 04/29/25 13:53 04/29/25 13:48 04/29/25 13:48 04/29/25 13:48 04/29/25 13:43 04/29/25 13:38 04/29/25 13:33 04/29/25 13:28 04/29/25 13:23 04/29/25 13:18 04/29/25 13:18 04/29/25 13:18 04/29/25 13:13 04/29/25 13:08 04/29/25 13:04 04/29/25 13:03 04/29/25 13:00 04/29/25 12:58 04/29/25 12:53 04/29/25 12:48 04/29/25 12:47 04/29/25 12:43 04/29/25 12:38 04/29/25 12:34 04/29/25 12:33 04/29/25 12:28 04/29/25 12:23 04/29/25 12:18 04/29/25 12:17 04/29/25 12:13 04/29/25 12:08 04/29/25 12:04 04/29/25 12:03 04/29/25 11:58 04/29/25 11:53 04/29/25 11:48 04/29/25 11:47 04/29/25 11:43 04/29/25 11:38 04/29/25 11:33 04/29/25 11:32 04/29/25 11:30 04/29/25 11:28 04/29/25 11:23 04/29/25 11:18 04/29/25 11:17 04/29/25 11:13 04/29/25 11:08 04/29/25 11:03 04/29/25 11:02 04/29/25 10:58 04/29/25 10:53 04/29/25 10:48 04/29/25 10:43 04/29/25 10:38 04/29/25 10:34 04/29/25 10:33 04/29/25 10:28 04/29/25 10:23 04/29/25 10:18 04/29/25 10:18 04/29/25 10:18 04/29/25 10:13 04/29/25 10:08 04/29/25 10:03 04/29/25 10:03 04/29/25 10:03 04/29/25 09:58 04/29/25 09:53 04/29/25 09:48 04/29/25 09:48 04/29/25 09:48 04/29/25 09:43 04/29/25 09:38 04/29/25 09:33 04/29/25 09:28 04/29/25 09:23 04/29/25 09:18 04/29/25 09:18 04/29/25 09:18 04/29/25 09:13 04/29/25 09:08 04/29/25 09:03 04/29/25 09:02 04/29/25 09:00 04/29/25 08:58 04/29/25 08:53 04/29/25 08:49 04/29/25 08:48 04/29/25 08:43 04/29/25 08:38 04/29/25 08:33 04/29/25 08:32 04/29/25 08:28 04/29/25 08:23 04/29/25 08:18 04/29/25 08:17 04/29/25 08:13 04/29/25 08:08 04/29/25 08:03 04/29/25 08:03 04/29/25 08:03 04/29/25 07:58 04/29/25 07:57 04/29/25 07:53 04/29/25 07:52 04/29/25 07:49 04/29/25 07:48 04/29/25 07:43 04/29/25 07:38 04/29/25 07:33 04/29/25 07:33 04/29/25 07:33 04/29/25 07:28 04/29/25 07:23 04/29/25 07:18 04/29/25 07:17 04/29/25 07:13 Room Air 04/29/25 07:13 04/29/25 07:11 04/29/25 07:08 04/29/25 07:03 04/29/25 07:02 04/29/25 06:58 04/29/25 06:53 04/29/25 06:48 04/29/25 06:48 04/29/25 06:48 04/29/25 06:43 04/29/25 06:38 04/29/25 06:33 04/29/25 06:33 04/29/25 06:33 04/29/25 06:28 04/29/25 06:23 04/29/25 06:18 04/29/25 06:17 04/29/25 06:13 04/29/25 06:08 04/29/25 06:03 04/29/25 06:02 04/29/25 06:00 04/29/25 06:00 04/29/25 05:58 04/29/25 05:56 04/29/25 05:53 04/29/25 05:49 04/29/25 05:48 04/29/25 05:43 04/29/25 05:38 04/29/25 05:34 04/29/25 05:33 04/29/25 05:28 04/29/25 05:23 04/29/25 05:18 04/29/25 05:17 04/29/25 05:13 04/29/25 05:08 04/29/25 05:03 04/29/25 05:02 04/29/25 04:58 04/29/25 04:53 04/29/25 04:48 04/29/25 04:48 04/29/25 04:48 04/29/25 04:43 04/29/25 04:38 04/29/25 04:33 04/29/25 04:29 04/29/25 04:28 04/29/25 04:23 04/29/25 04:18 04/29/25 04:17 04/29/25 04:13 04/29/25 04:08 04/29/25 04:04 04/29/25 04:03 04/29/25 04:00 04/29/25 04:00 04/29/25 03:58 04/29/25 03:53 04/29/25 03:48 04/29/25 03:47 04/29/25 03:43 04/29/25 03:38 04/29/25 03:33 04/29/25 03:33 04/29/25 03:33 Coding Level of Care Code None Diagnoses Encounter for induction of labor Z34.90
[2025-04-29] MEDS: SODIUM CHLORIDE 0.9% PF INJ 10 ML VIAL EPI STA (16:50)
--- NOTE | 2025-04-29 17:18 | Labor Progress Brief Note ---
Date of Service April 29, 2025 Subjective Called as the patient had more questions. Had just put iupc back in . cx essentially unchanged. Assessment & Plan (1) Encounter for induction of labor: Plan long conversation with letter of credit clerk about the situation. the bottom line is that I do not know how much longer we would be at it. Discussed with them the labor/or lack thereof so far and the thinking behind the decreasing of the p itocin overnight in hopes of getting a better contraction pattern. I shut off the pit for nrfht. Fetus is kishore category one now. After discussion, they have decided to proceed with c/s. There is no way I can predict whether we will be successful with vaginal delivery without continuing to try. We may get to the point of completely dilated but the baby won't come out. Fetus is reassuring now and can try to get to an adequate pattern that the baby will tolerate again. Discussed we may never get to an adequate pattern despite getting to pit of 30. Plan to proceed with c/s. Consent was reviewed with them using the letter of credit clerk. The risks of surgery were discussed with the patient including the risks of anesthesia, bleeding requiring transfusion, infection, poor wound healing, urinary retention, damage to surrounding structures including bowels, bladder, vessels, nerves and ureters that may require further surgery, hospitalization or intervention. The other risks of any surgery were discussed including heart attack, blood clots, stroke or . Discussed risk of injury to the baby. Consent reviewed and signed. Admission and Anticipated Discharge Date Admission Date: April 28, 2025 Physical Exam Physical Exam: cx--4+/75/-2 toco--none with pit off efm--140s with mod variability, accels to 160s, no decels Results & Data Vital Signs (Past 12 Hours) Vital Signs Temp Pulse Resp BP Pulse Ox Pulse Ox O2 Del Method 04/29/25 17:13 87 98 04/29/25 17:08 79 98 04/29/25 17:03 84 99 04/29/25 16:58 80 98 04/29/25 16:53 81 99 04/29/25 16:48 82 98 04/29/25 16:43 79 100 04/29/25 16:38 83 100 04/29/25 16:33 98 04/29/25 16:33 72 04/29/25 16:33 70 98/53 L 04/29/25 16:28 74 96 04/29/25 16:23 75 98 04/29/25 16:18 98 04/29/25 16:18 77 04/29/25 16:18 75 106/58 L 04/29/25 16:16 76 92 04/29/25 16:13 74 98 04/29/25 16:08 74 97 04/29/25 16:03 74 97 04/29/25 16:02 73 116/66 04/29/25 15:58 79 98 04/29/25 15:53 83 99 04/29/25 15:48 99 04/29/25 15:48 80 04/29/25 15:48 81 113/61 04/29/25 15:43 79 99 04/29/25 15:38 80 98 04/29/25 15:35 90 94 04/29/25 15:33 96 H 98 04/29/25 15:28 81 98 04/29/25 15:23 84 99 04/29/25 15:18 77 97 04/29/25 15:13 77 96 04/29/25 15:08 77 98 04/29/25 15:03 98 04/29/25 15:03 76 04/29/25 15:03 75 98/53 L 04/29/25 15:00 36.7 C 04/29/25 14:58 76 98 04/29/25 14:53 78 97 04/29/25 14:48 76 98 04/29/25 14:43 82 98 04/29/25 14:38 90 98 04/29/25 14:33 76 99 04/29/25 14:28 73 99 04/29/25 14:23 73 99 04/29/25 14:18 97 04/29/25 14:18 70 04/29/25 14:18 70 100/60 04/29/25 14:13 70 97 04/29/25 14:08 71 97 04/29/25 14:03 70 97 04/29/25 13:58 73 96 04/29/25 13:53 71 98 04/29/25 13:48 99 04/29/25 13:48 72 04/29/25 13:48 77 107/52 L 04/29/25 13:43 84 98 04/29/25 13:38 70 97 04/29/25 13:33 70 95/54 L 96 04/29/25 13:28 74 97 04/29/25 13:23 72 98 04/29/25 13:18 97 04/29/25 13:18 79 04/29/25 13:18 76 114/60 04/29/25 13:13 75 98 04/29/25 13:08 76 98 04/29/25 13:04 82 124/56 L 04/29/25 13:03 80 98 04/29/25 13:00 36.7 C 04/29/25 12:58 76 100 04/29/25 12:53 75 98 04/29/25 12:48 87 100 04/29/25 12:47 69 103/59 L 04/29/25 12:43 73 99 04/29/25 12:38 76 98 04/29/25 12:34 74 102/58 L 04/29/25 12:33 74 99 04/29/25 12:28 75 98 04/29/25 12:23 75 97 04/29/25 12:18 72 97 04/29/25 12:17 71 109/58 L 04/29/25 12:13 72 97 04/29/25 12:08 77 97 04/29/25 12:04 72 100/58 L 04/29/25 12:03 72 98 04/29/25 11:58 77 97 04/29/25 11:53 76 98 04/29/25 11:48 76 98 04/29/25 11:47 79 97/52 L 04/29/25 11:43 79 98 04/29/25 11:38 86 97 04/29/25 11:33 79 98 04/29/25 11:32 75 104/61 04/29/25 11:30 36.7 C 04/29/25 11:28 77 96 04/29/25 11:23 78 97 04/29/25 11:18 75 97 04/29/25 11:17 74 106/60 04/29/25 11:13 75 97 04/29/25 11:08 76 97 04/29/25 11:03 76 98 04/29/25 11:02 74 105/58 L 04/29/25 10:58 79 97 04/29/25 10:53 83 98 04/29/25 10:48 81 102/60 99 04/29/25 10:43 82 97 04/29/25 10:38 78 97 04/29/25 10:34 81 94/53 L 04/29/25 10:33 81 97 04/29/25 10:28 88 98 04/29/25 10:23 79 97 04/29/25 10:18 97 04/29/25 10:18 88 04/29/25 10:18 80 102/57 L 04/29/25 10:13 85 97 04/29/25 10:08 87 98 04/29/25 10:03 96 04/29/25 10:03 79 04/29/25 10:03 76 100/58 L 04/29/25 09:58 75 97 04/29/25 09:53 78 96 04/29/25 09:48 96 04/29/25 09:48 78 04/29/25 09:48 76 102/67 04/29/25 09:43 77 96 04/29/25 09:38 80 96 04/29/25 09:33 81 98 04/29/25 09:28 94 H 98 04/29/25 09:23 80 96 04/29/25 09:18 96 04/29/25 09:18 82 04/29/25 09:18 80 86/49 L 04/29/25 09:13 81 96 04/29/25 09:08 82 96 04/29/25 09:03 82 96 04/29/25 09:02 76 93/52 L 04/29/25 09:00 36.7 C 04/29/25 08:58 84 95 04/29/25 08:53 85 97 04/29/25 08:49 80 89/50 L 04/29/25 08:48 78 97 04/29/25 08:43 79 95 04/29/25 08:38 84 96 04/29/25 08:33 85 96 04/29/25 08:32 81 92/51 L 04/29/25 08:28 84 96 04/29/25 08:23 84 96 04/29/25 08:18 86 96 04/29/25 08:17 80 102/51 L 04/29/25 08:13 83 96 04/29/25 08:08 88 95 04/29/25 08:03 96 04/29/25 08:03 91 H 04/29/25 08:03 84 100/50 L 04/29/25 07:58 86 98 04/29/25 07:57 97 H 83/50 L 04/29/25 07:53 76 97 04/29/25 07:52 74 84/51 L 04/29/25 07:49 75 79/45 L 04/29/25 07:48 75 97 04/29/25 07:43 78 96 04/29/25 07:38 77 96 04/29/25 07:33 96 04/29/25 07:33 76 04/29/25 07:33 73 87/50 L 04/29/25 07:28 79 97 04/29/25 07:23 80 98 04/29/25 07:18 79 97 04/29/25 07:17 76 97/55 L 04/29/25 07:13 97 04/29/25 07:13 77 97 04/29/25 07:11 36.4 C L Room Air 04/29/25 07:08 77 98 04/29/25 07:03 83 98 04/29/25 07:02 72 95/52 L 04/29/25 06:58 74 97 04/29/25 06:53 72 97 04/29/25 06:48 98 04/29/25 06:48 73 04/29/25 06:48 75 102/56 L 04/29/25 06:43 74 99 04/29/25 06:38 79 98 04/29/25 06:33 99 04/29/25 06:33 80 04/29/25 06:33 78 84/50 L 04/29/25 06:28 79 96 04/29/25 06:23 76 96 04/29/25 06:18 76 97 04/29/25 06:17 75 90/55 L 04/29/25 06:13 81 98 04/29/25 06:08 69 96 04/29/25 06:03 75 97 04/29/25 06:02 70 93/51 L 04/29/25 06:00 18 04/29/25 06:00 37.2 C 18 04/29/25 05:58 70 97 04/29/25 05:56 70 93 04/29/25 05:53 72 96 04/29/25 05:49 70 89/53 L 04/29/25 05:48 69 98 04/29/25 05:43 70 96 04/29/25 05:38 72 97 04/29/25 05:34 68 89/52 L 04/29/25 05:33 67 97 04/29/25 05:28 71 96 04/29/25 05:23 70 96 04/29/25 05:18 70 95 O2 Del Method 04/29/25 17:13 04/29/25 17:08 04/29/25 17:03 04/29/25 16:58 04/29/25 16:53 04/29/25 16:48 04/29/25 16:43 04/29/25 16:38 04/29/25 16:33 04/29/25 16:33 04/29/25 16:33 04/29/25 16:28 04/29/25 16:23 04/29/25 16:18 04/29/25 16:18 04/29/25 16:18 04/29/25 16:16 04/29/25 16:13 04/29/25 16:08 04/29/25 16:03 04/29/25 16:02 04/29/25 15:58 04/29/25 15:53 04/29/25 15:48 04/29/25 15:48 04/29/25 15:48 04/29/25 15:43 04/29/25 15:38 04/29/25 15:35 04/29/25 15:33 04/29/25 15:28 04/29/25 15:23 04/29/25 15:18 04/29/25 15:13 04/29/25 15:08 04/29/25 15:03 04/29/25 15:03 04/29/25 15:03 04/29/25 15:00 04/29/25 14:58 04/29/25 14:53 04/29/25 14:48 04/29/25 14:43 04/29/25 14:38 04/29/25 14:33 04/29/25 14:28 04/29/25 14:23 04/29/25 14:18 04/29/25 14:18 04/29/25 14:18 04/29/25 14:13 04/29/25 14:08 04/29/25 14:03 04/29/25 13:58 04/29/25 13:53 04/29/25 13:48 04/29/25 13:48 04/29/25 13:48 04/29/25 13:43 04/29/25 13:38 04/29/25 13:33 04/29/25 13:28 04/29/25 13:23 04/29/25 13:18 04/29/25 13:18 04/29/25 13:18 04/29/25 13:13 04/29/25 13:08 04/29/25 13:04 04/29/25 13:03 04/29/25 13:00 04/29/25 12:58 04/29/25 12:53 04/29/25 12:48 04/29/25 12:47 04/29/25 12:43 04/29/25 12:38 04/29/25 12:34 04/29/25 12:33 04/29/25 12:28 04/29/25 12:23 04/29/25 12:18 04/29/25 12:17 04/29/25 12:13 04/29/25 12:08 04/29/25 12:04 04/29/25 12:03 04/29/25 11:58 04/29/25 11:53 04/29/25 11:48 04/29/25 11:47 04/29/25 11:43 04/29/25 11:38 04/29/25 11:33 04/29/25 11:32 04/29/25 11:30 04/29/25 11:28 04/29/25 11:23 04/29/25 11:18 04/29/25 11:17 04/29/25 11:13 04/29/25 11:08 04/29/25 11:03 04/29/25 11:02 04/29/25 10:58 04/29/25 10:53 04/29/25 10:48 04/29/25 10:43 04/29/25 10:38 04/29/25 10:34 04/29/25 10:33 04/29/25 10:28 04/29/25 10:23 04/29/25 10:18 04/29/25 10:18 04/29/25 10:18 04/29/25 10:13 04/29/25 10:08 04/29/25 10:03 04/29/25 10:03 04/29/25 10:03 04/29/25 09:58 04/29/25 09:53 04/29/25 09:48 04/29/25 09:48 04/29/25 09:48 04/29/25 09:43 04/29/25 09:38 04/29/25 09:33 04/29/25 09:28 04/29/25 09:23 04/29/25 09:18 04/29/25 09:18 04/29/25 09:18 04/29/25 09:13 04/29/25 09:08 04/29/25 09:03 04/29/25 09:02 04/29/25 09:00 04/29/25 08:58 04/29/25 08:53 04/29/25 08:49 04/29/25 08:48 04/29/25 08:43 04/29/25 08:38 04/29/25 08:33 04/29/25 08:32 04/29/25 08:28 04/29/25 08:23 04/29/25 08:18 04/29/25 08:17 04/29/25 08:13 04/29/25 08:08 04/29/25 08:03 04/29/25 08:03 04/29/25 08:03 04/29/25 07:58 04/29/25 07:57 04/29/25 07:53 04/29/25 07:52 04/29/25 07:49 04/29/25 07:48 04/29/25 07:43 04/29/25 07:38 04/29/25 07:33 04/29/25 07:33 04/29/25 07:33 04/29/25 07:28 04/29/25 07:23 04/29/25 07:18 04/29/25 07:17 04/29/25 07:13 Room Air 04/29/25 07:13 04/29/25 07:11 04/29/25 07:08 04/29/25 07:03 04/29/25 07:02 04/29/25 06:58 04/29/25 06:53 04/29/25 06:48 04/29/25 06:48 04/29/25 06:48 04/29/25 06:43 04/29/25 06:38 04/29/25 06:33 04/29/25 06:33 04/29/25 06:33 04/29/25 06:28 04/29/25 06:23 04/29/25 06:18 04/29/25 06:17 04/29/25 06:13 04/29/25 06:08 04/29/25 06:03 04/29/25 06:02 04/29/25 06:00 04/29/25 06:00 04/29/25 05:58 04/29/25 05:56 04/29/25 05:53 04/29/25 05:49 04/29/25 05:48 04/29/25 05:43 04/29/25 05:38 04/29/25 05:34 04/29/25 05:33 04/29/25 05:28 04/29/25 05:23 04/29/25 05:18 Coding Level of Care Code None Diagnoses Encounter for induction of labor Z34.90
[2025-04-29] MEDS ORDERED: LIDOCAINE 2%/EPINEPHRINE 1:200,000 20 ML PF ONE (17:27)
[2025-04-29] MEDS ORDERED: LACTATED RINGER'S 1,000 ML IV SCH ×3 (17:30→19:04)
[2025-04-29] MEDS ORDERED: OXYTOCIN 10 UNITS/ML VIAL ONE (17:31)
[2025-04-29] MEDS ORDERED: AZITHROMYCIN 500 MG/255 ML BAG IV SCH (17:45)
[2025-04-29] MEDS ORDERED: ACETAMINOPHEN 500 MG TAB PO SCH (17:45)
[2025-04-29] MEDS: CITRIC ACID/SODIUM CITRATE 15 ML UDC PO SCH (17:50)
[2025-04-29] MEDS ORDERED: ONDANSETRON INJ 2 MG/ML 2 ML VIAL ONE (18:04)
--- NOTE | 2025-04-29 18:11 | Communication Note ---
Date of Service: April 29, 2025 Pt taken to OR for emergent csec by Dr Cassidy;Dr Sanford signed on to case for relief
[2025-04-29] MEDS ORDERED: MoRPHine SULFATE PF 1 MG/ML 10 ML AMP/VIAL ONE (18:16)
[2025-04-29] MEDS ORDERED: NALOXONE HCL 0.08 MG in SYRINGE 1.8 ML IV PRN (18:23)
[2025-04-29] MEDS ORDERED: NALOXONE HCL 1 MG in SODIUM CHLORIDE 0.9% 1,000 ML IV PRN (18:23)
[2025-04-29] MEDS ORDERED: HYDROmorphone INJ 0.5 MG/0.5 ML SYR IV PRN (18:23)
[2025-04-29] MEDS ORDERED: NALOXONE HCL 0.4 MG/1 ML VIAL/CARP IV PRN (18:23)
[2025-04-29] MEDS ORDERED: LACTATED RINGER'S 500 ML IV PRN (18:23)
[2025-04-29] MEDS ORDERED: ONDANSETRON INJ 2 MG/ML 2 ML VIAL IV PRN (18:23)
[2025-04-29] MEDS ORDERED: diphenhydrAMINE 50 MG/ML VIAL IV PRN (18:23)
[2025-04-29] MEDS ORDERED: PROMETHAZINE 6.25 MG/50.25 ML BAG IV PRN (18:23)
[2025-04-29] MEDS ORDERED: NALBUPHINE HCL INJ 10 MG/ML AMP IV PRN (18:23)
[2025-04-29] MEDS ORDERED: SODIUM CHLORIDE 0.9% 1,000 ML IV SCH (18:30)
[2025-04-29] MEDS ORDERED: DC INTRASPINAL MORPHINE SCH (18:30)
[2025-04-29] MEDS ORDERED: NO NARCOTICS OR SEDATIVES SCH (18:30)
[2025-04-29] MEDS ORDERED: CALCIUM CARBONATE 500 MG CHEWABLE TAB PO PRN (19:04)
[2025-04-29] MEDS ORDERED: MAGNESIUM HYDROXIDE SUSP 30 ML UDC PO PRN (19:04)
[2025-04-29] MEDS ORDERED: SENNA 8.6 MG TAB PO PRN (19:04)
[2025-04-29] MEDS ORDERED: HYDROCORTISONE ACETATE 25 MG SUPP PR PRN (19:04)
[2025-04-29] MEDS ORDERED: BENZOCAINE 20% SPRY 85 APPLN/85 GM CAN EXT PRN (19:04)
--- NOTE | 2025-04-29 19:07 | Operative Report ---
[facility] Post Operative Report Pre & Post Diagnosis Operation Date: 04/29/25 17:30 Pre-Op Diagnosis: at 39.1 weeks Failure to Labor Post-Op Diagnosis: at 39.1 weeks Failure to Labor SM fibroid I identified the patient and participated in the time-out.: Yes Procedure Operation Date: 04/29/25 17:30 Actual Procedures p Primary low transverse Section. Live female child at 1813 - Mary Lou Cassidy MD, FACOG excision of Submucosal fibroid Surgeon Mary Lou Cassidy MD, FACOG Spinneret Cleaner Guy Purdy RN Estimated Blood Loss 737 Findings Consistent with Post-Op Diagnosis viable female in cephalic presentation, apgars 8/9. normal tubes and ovaries at site of incision was a submucosal fibroid partially extruded with hysterotomy incision. Fluids ivf--800cc uop--50cc Specimens fibroid Drains turner Anesthesia Type Labor Epidural Complications none Disposition Accompanied Patient To Recovery: Yes Disposition: L&D Indications [id number] here for induction for ama. Failed to labor without nonreassuring testing. Description of Procedure The patient was taken to the operating room where she was identified verbally and by bracelet. She was then placed in the supine position with a leftward tilt. A Turner catheter had been placed sterilely. the patient was prepped and draped in a normal standard fashion. the anesthetic was tested and found to be adequate. A time-out was held, identifying correct patient, procedure, positioning and preoperative antibiotics. There were no concerns. A Pfannenstiel skin incision was made with a knife and taken down to the underlying layer of fascia with the knife and Bovie electrocautery. Bleeding was attended to with the Bovie. The fascia was incised in the midline with the knife and taken out laterally with scissors. The superior edge of the fascial incision was grasped, elevated and the underlying layer of rectus muscle was taken off bluntly and with scissors. In a similar fashion, the inferior edge of the fascial incision was grasped, elevated and the underlying layer of rectus muscle was taken off bluntly and with scissors. The muscles were bluntly in the midline. The peritoneum was entered bluntly. The incision was then stretched. The bladder blade was placed. The vesicouterine peritoneum was identified, entered with scissors and taken out laterally with scissors. The bladder flap was created digitally A hysterotomy incision was scored with a knife and the incision was stretched superiorly and inferiorly with the surveillance operator's fingers. The operators hand was placed into the incision and the head was delivered atraumatically. No nuchal cord. The nose and mouth were bulb suctioned. the rest of the infant was then delivered without difficulty. The nose and mouth were again bulb suctioned. The cord was clamped and cut and the infant was then handed off to the awaiting cupola mechanic for drying and attention. Cord blood and segment were obtained. The placenta was Manually extracted. The uterus was exteriorized and cleared of all clot and debris with moistened laparotomy sponges. A fibroid was noted at the left side of the hysterotomy incision. It was partially extruded. The incision could not be repaired without removal. Two clamps were placed across the base and the fibroid was excised . the pedicles were then sutured with 0 vicryl. The hysterotomy incision was repaired in two layers, the first in a running locked layer, the second in an imbricating layer. Hemostasis was noted to be good. Posterior cul-de-sac was irrigated and cleared of all clot and debris. The hysterotomy incision was again inspected and found to be hemostatic. the uterus was reinteriorized. Hysterotomy incision was again inspected, one figure of 8 suture was needed in the midline, and then the uterus was found to be hemostatic. Rectus muscles were reapproximated with several interrupted stitches of 0 Vicryl. The fascia was then reapproximated with 0 Vicryl starting at the edges and meeting in the midline. The subcuticular tissues were copiously irrigated and bleeding was attended to with cautery. The skin was then closed with 4-0 Vicryl in a subcuticular fashion. All sponge, lap and needle counts were correct x 2. The patient tolerated the procedure well and was taken to labor and delivery in stable condition. The uterus was expressed prior to going to the bed and approximately 50cc of blood, clot and membranes expressed. Uterus was firm. I attest to the content of the Intraoperative Record and any orders documented therein. Any exceptions are noted below. OB Procedure Charges 08697 (submucosal myometcomy)
[2025-04-29] MEDS: KETOROLAC 30 MG/ML VIAL IV SCH (19:21)
[2025-04-29] MEDS: OXYTOCIN 20 UNITS/LR 1,002 ML IV SCH (20:12)
--- NOTE | 2025-04-29 20:12 | Anesthesia Procedure Note ---
Date of Service April 29, 2025 Anesthesia Post Epidural Note Vital Signs Vital Signs: Temp Pulse Resp BP Pulse Ox O2 Del Method 98.6 F 71 18 96/52 L 97 Room Air 04/29/25 18:57 04/29/25 20:08 04/29/25 19:47 04/29/25 20:05 04/29/25 20:08 04/29/25 07:13 Pain Intensity Abdomen: Pain Intensity: 0 Notes Mental Status: alert / awake / arousable and participated in evaluation Nausea / Vomiting: adequately controlled Pain: adequately controlled Airway Patency, RR, SpO2: stable & adequate BP & HR: stable & adequate Hydration State: stable & adequate Neuraxial Anesthesia: was administered and sensory block is resolving Anesthetic Complications: no major complications apparent and Pt Satisfied with anesthetic care Epidural: Removed without complications and With tip intact
--- NOTE | 2025-04-29 20:13 | Anesthesiology Progress Note ---
Date of Service April 29, 2025 Anesthesia Post Procedure Vital Signs Vital Signs: Temp Pulse Resp BP Pulse Ox Pulse Ox O2 Del Method 04/29/25 20:08 71 97 04/29/25 20:05 75 96/52 L 04/29/25 20:03 75 96 04/29/25 19:58 75 97 04/29/25 19:55 73 100/58 L 04/29/25 19:53 78 96 04/29/25 19:48 75 96 04/29/25 19:47 74 18 103/55 L 04/29/25 19:45 74 103/55 L 04/29/25 19:43 75 96 04/29/25 19:38 79 96 04/29/25 19:37 79 18 96 04/29/25 19:35 83 91/53 L 04/29/25 19:33 78 96 04/29/25 19:28 83 96 04/29/25 19:27 83 18 91/53 L 04/29/25 19:25 75 98/52 L 04/29/25 19:23 78 96 04/29/25 19:18 77 94 04/29/25 19:17 83 18 91/53 L 04/29/25 19:15 75 95/52 L 04/29/25 19:13 80 96 04/29/25 19:10 84 94 04/29/25 19:08 79 94 04/29/25 19:07 83 18 96 04/29/25 19:05 80 93/55 L 04/29/25 19:03 77 93 04/29/25 18:58 81 94 04/29/25 18:57 98.6 F 18 04/29/25 18:54 82 90/51 L 04/29/25 18:53 89 94 04/29/25 17:57 81 99/57 L 04/29/25 17:48 84 97 04/29/25 17:47 78 104/51 L 04/29/25 17:45 83 104/55 L 04/29/25 17:43 80 98 04/29/25 17:38 82 98 04/29/25 17:33 76 104/56 L 98 04/29/25 17:28 88 99 04/29/25 17:23 82 99 04/29/25 17:18 98 04/29/25 17:18 82 04/29/25 17:18 80 95/53 L 04/29/25 17:13 87 98 04/29/25 17:08 79 98 04/29/25 17:03 84 99 04/29/25 16:58 80 98 04/29/25 16:53 81 99 04/29/25 16:48 82 98 04/29/25 16:43 79 100 04/29/25 16:38 83 100 04/29/25 16:33 98 04/29/25 16:33 72 04/29/25 16:33 70 98/53 L 04/29/25 16:28 74 96 04/29/25 16:23 75 98 04/29/25 16:18 98 04/29/25 16:18 77 04/29/25 16:18 75 106/58 L 04/29/25 16:16 76 92 04/29/25 16:13 74 98 04/29/25 16:08 74 97 04/29/25 16:03 74 97 04/29/25 16:02 73 116/66 04/29/25 15:58 79 98 04/29/25 15:53 83 99 04/29/25 15:48 99 04/29/25 15:48 80 04/29/25 15:48 81 113/61 04/29/25 15:43 79 99 04/29/25 15:38 80 98 04/29/25 15:35 90 94 04/29/25 15:33 96 H 98 04/29/25 15:28 81 98 04/29/25 15:23 84 99 04/29/25 15:18 77 97 04/29/25 15:13 77 96 04/29/25 15:08 77 98 04/29/25 15:03 98 04/29/25 15:03 76 04/29/25 15:03 75 98/53 L 04/29/25 15:00 98.1 F 04/29/25 14:58 76 98 04/29/25 14:53 78 97 04/29/25 14:48 76 98 04/29/25 14:43 82 98 04/29/25 14:38 90 98 04/29/25 14:33 76 99 04/29/25 14:28 73 99 04/29/25 14:23 73 99 04/29/25 14:18 97 04/29/25 14:18 70 12/13/25 14:18 70 100/60 04/29/25 14:13 70 97 04/29/25 14:08 71 97 04/29/25 14:03 70 97 04/29/25 13:58 73 96 04/29/25 13:53 71 98 04/29/25 13:48 99 04/29/25 13:48 72 04/29/25 13:48 77 107/52 L 04/29/25 13:43 84 98 04/29/25 13:38 70 97 04/29/25 13:33 70 95/54 L 96 04/29/25 13:28 74 97 04/29/25 13:23 72 98 04/29/25 13:18 97 04/29/25 13:18 79 04/29/25 13:18 76 114/60 04/29/25 13:13 75 98 04/29/25 13:08 76 98 04/29/25 13:04 82 124/56 L 04/29/25 13:03 80 98 04/29/25 13:00 98.1 F 04/29/25 12:58 76 100 04/29/25 12:53 75 98 04/29/25 12:48 87 100 04/29/25 12:47 69 103/59 L 04/29/25 12:43 73 99 04/29/25 12:38 76 98 04/29/25 12:34 74 102/58 L 04/29/25 12:33 74 99 04/29/25 12:28 75 98 04/29/25 12:23 75 97 04/29/25 12:18 72 97 04/29/25 12:17 71 109/58 L 04/29/25 12:13 72 97 04/29/25 12:08 77 97 04/29/25 12:04 72 100/58 L 04/29/25 12:03 72 98 04/29/25 11:58 77 97 04/29/25 11:53 76 98 04/29/25 11:48 76 98 04/29/25 11:47 79 97/52 L 04/29/25 11:43 79 98 04/29/25 11:38 86 97 04/29/25 11:33 79 98 04/29/25 11:32 75 104/61 04/29/25 11:30 98.1 F 04/29/25 11:28 77 96 04/29/25 11:23 78 97 04/29/25 11:18 75 97 04/29/25 11:17 74 106/60 04/29/25 11:13 75 97 04/29/25 11:08 76 97 04/29/25 11:03 76 98 04/29/25 11:02 74 105/58 L 04/29/25 10:58 79 97 04/29/25 10:53 83 98 04/29/25 10:48 81 102/60 99 04/29/25 10:43 82 97 04/29/25 10:38 78 97 04/29/25 10:34 81 94/53 L 04/29/25 10:33 81 97 04/29/25 10:28 88 98 04/29/25 10:23 79 97 04/29/25 10:18 97 04/29/25 10:18 88 04/29/25 10:18 80 102/57 L 04/29/25 10:13 85 97 04/29/25 10:08 87 98 04/29/25 10:03 96 04/29/25 10:03 79 04/29/25 10:03 76 100/58 L 04/29/25 09:58 75 97 04/29/25 09:53 78 96 04/29/25 09:48 96 04/29/25 09:48 78 04/29/25 09:48 76 102/67 04/29/25 09:43 77 96 04/29/25 09:38 80 96 04/29/25 09:33 81 98 04/29/25 09:28 94 H 98 04/29/25 09:23 80 96 04/29/25 09:18 96 04/29/25 09:18 82 04/29/25 09:18 80 86/49 L 04/29/25 09:13 81 96 04/29/25 09:08 82 96 04/29/25 09:03 82 96 04/29/25 09:02 76 93/52 L 04/29/25 09:00 98.1 F 04/29/25 08:58 84 95 04/29/25 08:53 85 97 04/29/25 08:49 80 89/50 L 04/29/25 08:48 78 97 04/29/25 08:43 79 95 04/29/25 08:38 84 96 04/29/25 08:33 85 96 04/29/25 08:32 81 92/51 L 04/29/25 08:28 84 96 04/29/25 08:23 84 96 04/29/25 08:18 86 96 04/29/25 08:17 80 102/51 L 04/29/25 08:13 83 96 04/29/25 08:08 88 95 04/29/25 08:03 96 04/29/25 08:03 91 H 04/29/25 08:03 84 100/50 L 04/29/25 07:58 86 98 04/29/25 07:57 97 H 83/50 L 04/29/25 07:53 76 97 04/29/25 07:52 74 84/51 L 04/29/25 07:49 75 79/45 L 04/29/25 07:48 75 97 04/29/25 07:43 78 96 04/29/25 07:38 77 96 04/29/25 07:33 96 04/29/25 07:33 76 04/29/25 07:33 73 87/50 L 04/29/25 07:28 79 97 04/29/25 07:23 80 98 04/29/25 07:18 79 97 04/29/25 07:17 76 97/55 L 04/29/25 07:13 97 04/29/25 07:13 77 97 04/29/25 07:11 97.5 F L Room Air 04/29/25 07:08 77 98 04/29/25 07:03 83 98 04/29/25 07:02 72 95/52 L 04/29/25 06:58 74 97 04/29/25 06:53 72 97 04/29/25 06:48 98 04/29/25 06:48 73 04/29/25 06:48 75 102/56 L 04/29/25 06:43 74 99 04/29/25 06:38 79 98 04/29/25 06:33 99 04/29/25 06:33 80 04/29/25 06:33 78 84/50 L 04/29/25 06:28 79 96 04/29/25 06:23 76 96 04/29/25 06:18 76 97 04/29/25 06:17 75 90/55 L 04/29/25 06:13 81 98 04/29/25 06:08 69 96 04/29/25 06:03 75 97 04/29/25 06:02 70 93/51 L 04/29/25 06:00 18 04/29/25 06:00 99.0 F 18 04/29/25 05:58 70 97 04/29/25 05:56 70 93 04/29/25 05:53 72 96 04/29/25 05:49 70 89/53 L 04/29/25 05:48 69 98 04/29/25 05:43 70 96 04/29/25 05:38 72 97 04/29/25 05:34 68 89/52 L 04/29/25 05:33 67 97 04/29/25 05:28 71 96 04/29/25 05:23 70 96 04/29/25 05:18 70 95 04/29/25 05:17 68 94/50 L 04/29/25 05:13 70 96 04/29/25 05:08 71 96 04/29/25 05:03 70 97 04/29/25 05:02 68 94/51 L 04/29/25 04:58 69 97 04/29/25 04:53 70 95 04/29/25 04:48 96 04/29/25 04:48 71 04/29/25 04:48 71 97/56 L 04/29/25 04:43 73 96 04/29/25 04:38 71 97 04/29/25 04:33 73 98 04/29/25 04:29 75 94 04/29/25 04:28 76 95 04/29/25 04:23 73 95 04/29/25 04:18 72 95 04/29/25 04:17 73 104/56 L 04/29/25 04:13 71 96 04/29/25 04:08 72 97 04/29/25 04:04 69 101/56 L 04/29/25 04:03 70 98 04/29/25 04:00 18 04/29/25 04:00 98.8 F 18 04/29/25 03:58 71 96 04/29/25 03:53 73 96 04/29/25 03:48 71 97 04/29/25 03:47 68 98/54 L 04/29/25 03:43 72 96 04/29/25 03:38 72 97 04/29/25 03:33 98 04/29/25 03:33 71 04/29/25 03:33 70 99/55 L 04/29/25 03:28 73 96 04/29/25 03:23 71 97 04/29/25 03:18 71 100/59 L 98 04/29/25 03:13 74 97 04/29/25 03:08 79 98 04/29/25 03:04 88 144/64 H 04/29/25 03:03 89 98 04/29/25 02:58 83 98 04/29/25 02:53 80 99 04/29/25 02:48 100 04/29/25 02:48 85 04/29/25 02:48 73 89/55 L 04/29/25 02:43 78 95 04/29/25 02:38 77 96 04/29/25 02:33 81 96 04/29/25 02:32 83 94/52 L 04/29/25 02:28 85 99 04/29/25 02:23 77 98 04/29/25 02:19 75 93/52 L 04/29/25 02:18 75 98 04/29/25 02:13 76 98 04/29/25 02:08 75 98 04/29/25 02:03 74 98 04/29/25 02:02 75 93/55 L 04/29/25 01:58 77 97 04/29/25 01:53 76 98 04/29/25 01:48 98 04/29/25 01:48 75 04/29/25 01:48 72 88/50 L 04/29/25 01:43 77 98 04/29/25 01:38 77 97 04/29/25 01:33 97 04/29/25 01:33 88 04/29/25 01:33 83 96/55 L 04/29/25 01:28 78 95 04/29/25 01:23 75 98 04/29/25 01:19 81 92/50 L 04/29/25 01:18 78 98 04/29/25 01:13 85 98 04/29/25 01:08 80 97 04/29/25 01:06 77 92/47 L 04/29/25 01:03 91 H 98 04/29/25 00:58 74 97 04/29/25 00:53 86 98 04/29/25 00:49 75 103/53 L 04/29/25 00:48 75 98 04/29/25 00:43 73 97 04/29/25 00:38 77 98 04/29/25 00:33 73 97 04/29/25 00:32 74 103/55 L 04/29/25 00:28 76 96 04/29/25 00:23 74 96 04/29/25 00:18 72 108/58 L 99 04/29/25 00:13 72 96 04/29/25 00:08 73 97 04/29/25 00:03 98 04/29/25 00:03 74 04/29/25 00:03 76 96/57 L 04/28/25 23:58 79 98 04/28/25 23:53 78 98 04/28/25 23:48 98 04/28/25 23:48 77 04/28/25 23:48 73 113/59 L 04/28/25 23:43 77 99 04/28/25 23:38 75 98 04/28/25 23:35 71 112/59 L 04/28/25 23:33 76 97 04/28/25 23:28 75 97 04/28/25 23:23 95 H 97 04/28/25 23:18 98 04/28/25 23:18 75 04/28/25 23:18 73 101/50 L 04/28/25 23:13 76 99 04/28/25 23:08 89 100 04/28/25 23:04 74 99/58 L 04/28/25 23:03 76 99 04/28/25 23:02 18 04/28/25 23:02 99.1 F 18 04/28/25 22:58 73 98 04/28/25 22:53 78 99 04/28/25 22:48 77 99 04/28/25 22:43 75 98 04/28/25 22:38 76 99 04/28/25 22:33 76 103/54 L 98 04/28/25 22:28 84 98 04/28/25 22:23 75 98 04/28/25 22:18 99 04/28/25 22:18 73 04/28/25 22:18 75 101/58 L 04/28/25 22:13 74 100 04/28/25 22:08 76 99 04/28/25 22:03 80 98 04/28/25 21:58 76 97 04/28/25 21:53 74 98 04/28/25 21:48 73 98 04/28/25 21:43 77 98 04/28/25 21:38 74 99 04/28/25 21:34 71 103/57 L 04/28/25 21:33 72 98 04/28/25 21:28 73 97 04/28/25 21:23 96 H 98 04/28/25 21:18 99 04/28/25 21:18 76 04/28/25 21:18 73 104/61 04/28/25 21:13 73 98 04/28/25 21:08 74 99 04/28/25 21:03 68 104/55 L 98 04/28/25 20:58 75 100 04/28/25 20:53 73 100 04/28/25 20:48 70 100/52 L 100 04/28/25 20:43 73 99 04/28/25 20:38 79 100 04/28/25 20:33 77 100 04/28/25 20:32 71 107/61 04/28/25 20:28 74 99 04/28/25 20:23 78 98 04/28/25 20:18 75 99 04/28/25 20:17 74 108/57 L 04/28/25 20:13 71 97 O2 Del Method 04/29/25 20:08 04/29/25 20:05 04/29/25 20:03 04/29/25 19:58 04/29/25 19:55 04/29/25 19:53 04/29/25 19:48 04/29/25 19:47 04/29/25 19:45 04/29/25 19:43 04/29/25 19:38 04/29/25 19:37 04/29/25 19:35 04/29/25 19:33 04/29/25 19:28 04/29/25 19:27 04/29/25 19:25 04/29/25 19:23 04/29/25 19:18 04/29/25 19:17 04/29/25 19:15 04/29/25 19:13 04/29/25 19:10 04/29/25 19:08 04/29/25 19:07 04/29/25 19:05 04/29/25 19:03 04/29/25 18:58 04/29/25 18:57 04/29/25 18:54 04/29/25 18:53 04/29/25 17:57 04/29/25 17:48 04/29/25 17:47 04/29/25 17:45 04/29/25 17:43 04/29/25 17:38 04/29/25 17:33 04/29/25 17:28 04/29/25 17:23 04/29/25 17:18 04/29/25 17:18 04/29/25 17:18 04/29/25 17:13 04/29/25 17:08 04/29/25 17:03 04/29/25 16:58 04/29/25 16:53 04/29/25 16:48 04/29/25 16:43 04/29/25 16:38 04/29/25 16:33 04/29/25 16:33 04/29/25 16:33 04/29/25 16:28 04/29/25 16:23 04/29/25 16:18 04/29/25 16:18 04/29/25 16:18 04/29/25 16:16 04/29/25 16:13 04/29/25 16:08 04/29/25 16:03 04/29/25 16:02 04/29/25 15:58 04/29/25 15:53 04/29/25 15:48 04/29/25 15:48 04/29/25 15:48 04/29/25 15:43 04/29/25 15:38 04/29/25 15:35 04/29/25 15:33 04/29/25 15:28 04/29/25 15:23 04/29/25 15:18 04/29/25 15:13 04/29/25 15:08 04/29/25 15:03 04/29/25 15:03 04/29/25 15:03 04/29/25 15:00 04/29/25 14:58 04/29/25 14:53 04/29/25 14:48 04/29/25 14:43 04/29/25 14:38 04/29/25 14:33 04/29/25 14:28 04/29/25 14:23 04/29/25 14:18 04/29/25 14:18 04/29/25 14:18 04/29/25 14:13 04/29/25 14:08 04/29/25 14:03 04/29/25 13:58 04/29/25 13:53 04/29/25 13:48 04/29/25 13:48 04/29/25 13:48 04/29/25 13:43 04/29/25 13:38 04/29/25 13:33 04/29/25 13:28 04/29/25 13:23 04/29/25 13:18 04/29/25 13:18 04/29/25 13:18 04/29/25 13:13 04/29/25 13:08 04/29/25 13:04 04/29/25 13:03 04/29/25 13:00 04/29/25 12:58 04/29/25 12:53 04/29/25 12:48 04/29/25 12:47 04/29/25 12:43 04/29/25 12:38 04/29/25 12:34 04/29/25 12:33 04/29/25 12:28 04/29/25 12:23 04/29/25 12:18 04/29/25 12:17 04/29/25 12:13 04/29/25 12:08 04/29/25 12:04 04/29/25 12:03 04/29/25 11:58 04/29/25 11:53 04/29/25 11:48 04/29/25 11:47 04/29/25 11:43 04/29/25 11:38 04/29/25 11:33 04/29/25 11:32 04/29/25 11:30 04/29/25 11:28 04/29/25 11:23 04/29/25 11:18 04/29/25 11:17 04/29/25 11:13 04/29/25 11:08 04/29/25 11:03 04/29/25 11:02 04/29/25 10:58 04/29/25 10:53 04/29/25 10:48 04/29/25 10:43 04/29/25 10:38 04/29/25 10:34 04/29/25 10:33 04/29/25 10:28 04/29/25 10:23 04/29/25 10:18 04/29/25 10:18 04/29/25 10:18 04/29/25 10:13 04/29/25 10:08 04/29/25 10:03 04/29/25 10:03 04/29/25 10:03 04/29/25 09:58 04/29/25 09:53 04/29/25 09:48 04/29/25 09:48 04/29/25 09:48 04/29/25 09:43 04/29/25 09:38 04/29/25 09:33 04/29/25 09:28 04/29/25 09:23 04/29/25 09:18 04/29/25 09:18 04/29/25 09:18 04/29/25 09:13 04/29/25 09:08 04/29/25 09:03 04/29/25 09:02 04/29/25 09:00 04/29/25 08:58 04/29/25 08:53 04/29/25 08:49 04/29/25 08:48 04/29/25 08:43 04/29/25 08:38 04/29/25 08:33 04/29/25 08:32 04/29/25 08:28 04/29/25 08:23 04/29/25 08:18 04/29/25 08:17 04/29/25 08:13 04/29/25 08:08 04/29/25 08:03 04/29/25 08:03 04/29/25 08:03 04/29/25 07:58 04/29/25 07:57 04/29/25 07:53 04/29/25 07:52 04/29/25 07:49 04/29/25 07:48 04/29/25 07:43 04/29/25 07:38 04/29/25 07:33 04/29/25 07:33 04/29/25 07:33 04/29/25 07:28 04/29/25 07:23 04/29/25 07:18 04/29/25 07:17 04/29/25 07:13 Room Air 04/29/25 07:13 04/29/25 07:11 04/29/25 07:08 04/29/25 07:03 04/29/25 07:02 04/29/25 06:58 04/29/25 06:53 04/29/25 06:48 04/29/25 06:48 04/29/25 06:48 04/29/25 06:43 04/29/25 06:38 04/29/25 06:33 04/29/25 06:33 04/29/25 06:33 04/29/25 06:28 04/29/25 06:23 04/29/25 06:18 04/29/25 06:17 04/29/25 06:13 04/29/25 06:08 04/29/25 06:03 04/29/25 06:02 04/29/25 06:00 04/29/25 06:00 04/29/25 05:58 04/29/25 05:56 04/29/25 05:53 04/29/25 05:49 04/29/25 05:48 04/29/25 05:43 04/29/25 05:38 04/29/25 05:34 04/29/25 05:33 04/29/25 05:28 04/29/25 05:23 04/29/25 05:18 04/29/25 05:17 04/29/25 05:13 04/29/25 05:08 04/29/25 05:03 04/29/25 05:02 04/29/25 04:58 04/29/25 04:53 04/29/25 04:48 04/29/25 04:48 04/29/25 04:48 04/29/25 04:43 04/29/25 04:38 04/29/25 04:33 04/29/25 04:29 04/29/25 04:28 04/29/25 04:23 04/29/25 04:18 04/29/25 04:17 04/29/25 04:13 04/29/25 04:08 04/29/25 04:04 04/29/25 04:03 04/29/25 04:00 04/29/25 04:00 04/29/25 03:58 04/29/25 03:53 04/29/25 03:48 04/29/25 03:47 04/29/25 03:43 04/29/25 03:38 04/29/25 03:33 04/29/25 03:33 04/29/25 03:33 04/29/25 03:28 04/29/25 03:23 04/29/25 03:18 04/29/25 03:13 04/29/25 03:08 04/29/25 03:04 04/29/25 03:03 04/29/25 02:58 04/29/25 02:53 04/29/25 02:48 04/29/25 02:48 04/29/25 02:48 04/29/25 02:43 04/29/25 02:38 04/29/25 02:33 04/29/25 02:32 04/29/25 02:28 04/29/25 02:23 04/29/25 02:19 04/29/25 02:18 04/29/25 02:13 04/29/25 02:08 04/29/25 02:03 04/29/25 02:02 04/29/25 01:58 04/29/25 01:53 04/29/25 01:48 04/29/25 01:48 04/29/25 01:48 04/29/25 01:43 04/29/25 01:38 04/29/25 01:33 04/29/25 01:33 04/29/25 01:33 04/29/25 01:28 04/29/25 01:23 04/29/25 01:19 04/29/25 01:18 04/29/25 01:13 04/29/25 01:08 04/29/25 01:06 04/29/25 01:03 04/29/25 00:58 04/29/25 00:53 04/29/25 00:49 04/29/25 00:48 04/29/25 00:43 04/29/25 00:38 04/29/25 00:33 04/29/25 00:32 04/29/25 00:28 04/29/25 00:23 04/29/25 00:18 04/29/25 00:13 04/29/25 00:08 04/29/25 00:03 04/29/25 00:03 04/29/25 00:03 04/28/25 23:58 04/28/25 23:53 04/28/25 23:48 04/28/25 23:48 04/28/25 23:48 04/28/25 23:43 04/28/25 23:38 04/28/25 23:35 04/28/25 23:33 04/28/25 23:28 04/28/25 23:23 04/28/25 23:18 04/28/25 23:18 04/28/25 23:18 04/28/25 23:13 04/28/25 23:08 04/28/25 23:04 04/28/25 23:03 04/28/25 23:02 04/28/25 23:02 04/28/25 22:58 04/28/25 22:53 04/28/25 22:48 04/28/25 22:43 04/28/25 22:38 04/28/25 22:33 04/28/25 22:28 04/28/25 22:23 04/28/25 22:18 04/28/25 22:18 04/28/25 22:18 04/28/25 22:13 04/28/25 22:08 04/28/25 22:03 04/28/25 21:58 04/28/25 21:53 04/28/25 21:48 04/28/25 21:43 04/28/25 21:38 04/28/25 21:34 04/28/25 21:33 04/28/25 21:28 04/28/25 21:23 04/28/25 21:18 04/28/25 21:18 04/28/25 21:18 04/28/25 21:13 04/28/25 21:08 04/28/25 21:03 04/28/25 20:58 04/28/25 20:53 04/28/25 20:48 04/28/25 20:43 04/28/25 20:38 04/28/25 20:33 04/28/25 20:32 04/28/25 20:28 04/28/25 20:23 04/28/25 20:18 04/28/25 20:17 04/28/25 20:13 Pain Intensity Abdomen: Pain Intensity: 0 Transfer of Care Handoff Completed per policy Notes Mental Status: alert / awake / arousable and participated in evaluation Patient Amnestic to Procedure: No Nausea / Vomiting: adequately controlled Pain: adequately controlled Airway Patency, RR, SpO2: stable & adequate BP & HR: stable & adequate Hydration State: stable & adequate Neuraxial Anesthesia: was administered and sensory block is resolving Anesthetic Complications: no major complications apparent and Pt Satisfied with anesthetic care
[2025-04-29] MEDS: DOCUSATE SODIUM 100 MG CAP PO SCH (21:00)
[2025-04-30] MEDS: SIMETHICONE 80 MG CHEW PO SCH (01:11)
[2025-04-30] MEDS: ACETAMINOPHEN 325 MG TAB PO SCH (01:12)
[2025-04-30 06:39] LABS: Hematocrit (blood only) 26.0 % (37.0-47.0); Hemoglobin 8.9 g/dL (12.0-16.0); Mean Corpuscular Hemoglobin 30.3 pg (25.0-34.0); Mean Corpuscular Volume 88.4 fL (80.0-100.0); Platelet Count 105 K/uL (130-400); RDW Standard Deviation 40.2 fL (36.4-46.3); Red Blood Count 2.94 M/uL (4.20-5.40); White Blood Count 10.20 K/ul (4.8-10.8)
[2025-04-30 07:04] LABS: Immature Granulocytes # (auto) 0.05 K/uL (0.01-0.20); Immature Granulocytes % (auto) 0.5 %
[2025-04-30] MEDS: FERROUS SULFATE 325 MG TAB PO SCH (07:30)
[2025-04-30] MEDS: PRENATAL VITAMIN 1 TAB PO SCH (07:31)
--- NOTE | 2025-04-30 09:55 | Obstetrical Progress Note ---
Date of Service April 30, 2025 Assessment & Plan (1) delivery delivered: Plan Plan routine care. Encourage ambulation. Voiding well. Lochia minimal. Discussed surgery and findings. Patient notes that she was aware that she had fibroids. [employer] used. Day #:: 1 Subjective Ambulation: limited ambulation Voiding: no voiding problems Passing Gas:: Yes (small) Diet Tolerance:: regular diet Lochia:: Small Feeding Type:: bottle feeding Pain is controlled and overall feeling well. Physical Exam Constitutional WD/WN, vitals as above Cardiovascular Extremities: + edema (tr); no calf tenderness Gastrointestinal (Abdomen) soft, slightly distended, appropriately tender ff/appro tender at u incision c/d/i Psychiatric A+Ox3, euthymic affect Results & Data Vital Signs (Past 12 Hours) Vital Signs Temp Pulse Resp BP Pulse Ox O2 Del Method 04/30/25 08:00 37.2 C 92 H 18 87/53 L 94 Room Air 04/30/25 08:00 18 93 04/30/25 07:00 18 94 04/30/25 06:35 16 99 04/30/25 05:00 14 97 04/30/25 04:30 16 98 04/30/25 03:18 37.3 C 104 H 16 100/58 L 94 Room Air 04/30/25 03:15 16 95 04/30/25 02:15 16 97 04/30/25 01:00 16 99 04/30/25 00:00 16 98 04/30/25 00:00 16 97 04/29/25 23:06 37 C 82 16 99/60 L 99 Room Air 04/29/25 22:27 16 96
[2025-04-30] MEDS ORDERED: diphenhydrAMINE 50 MG/ML VIAL IV PRN (12:24)
[2025-04-30] MEDS ORDERED: ONDANSETRON INJ 2 MG/ML 2 ML VIAL IV PRN (12:24)
[2025-04-30] MEDS ORDERED: HYDROmorphone INJ 0.5 MG/0.5 ML SYR IV PRN (12:24)
[2025-04-30] MEDS ORDERED: PROMETHAZINE 12.5 MG/50.5 ML BAG IV PRN (12:24)
[2025-04-30] MEDS ORDERED: diphenhydrAMINE Capsule 25 MG CAP PO PRN (12:24)
[2025-04-30] MEDS ORDERED: KETOROLAC 30 MG/ML VIAL IV PRN (18:56)
[2025-04-30] MEDS: IBUPROFEN 600 MG TAB PO SCH (20:03)
[2025-04-30 23:03] VITALS: O2SAT 96
[2025-05-01 06:25] LABS: Hematocrit (blood only) 22.2 % (37.0-47.0); Hemoglobin 7.5 g/dL (12.0-16.0)
--- NOTE | 2025-05-01 08:03 | Obstetrical Progress Note ---
Date of Service May 01, 2025 Assessment & Plan (1) delivery delivered: Plan Overall doing well. Vitals stable. hgb noted 7.5 but currently asx. Plan d/c home. Instructions reviewed. [employer] used for visit. Day #:: 2 Subjective Ambulation: ambulating normally (no lightheadedness or dizziness) Voiding: no voiding problems Passing Gas:: Yes Diet Tolerance:: regular diet Lochia:: Small Feeding Type:: bottle feeding Physical Exam Constitutional WD/WN, vitals as above Cardiovascular Extremities: + edema (tr); no calf tenderness Gastrointestinal (Abdomen) soft, nt, nd, ff/appro tender 1 below u incision c/d/i Psychiatric A+Ox3, euthymic affect Results & Data Vital Signs (Past 12 Hours) Vital Signs Temp Pulse Resp BP Pulse Ox O2 Del Method 04/30/25 23:03 36.9 C 92 H 15 91/57 L 96 Room Air 04/30/25 20:10 36.7 C 97 H 18 97/59 L 95 Room Air
[2025-05-01 09:00] VITALS: BP 98/62; RESP 18; TEMP 98.1
[2025-05-01 09:50] VITALS: PULSE 110
[2025-05-01] MEDS: MoRPHine SULFATE PF 1 MG/ML 10 ML AMP/VIAL EPI ONE (10:08)
[2025-05-01] MEDS: DIPHTHER/TETAN/PERTUS Vaccine (Tdap, Adol/Adult) 0.5mL IM ONE (10:08)
[2025-05-01] MEDS ORDERED: IBUPROFEN 600 MG TAB PO PRN (18:56)
[2025-05-02] MEDS ORDERED: ACETAMINOPHEN 325 MG TAB PO PRN (00:56)
--- NOTE | 2025-05-02 11:51 | Discharge Summary ---
Date of Service May 02, 2025 Admission HPI Per Admitting Provider Kenny is a 40yoaf who presents for iol for ama. 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 Discharge Data Consultations 04/28/25 12:02 Consult Anesthesiology Stat Procedures Performed Operation Date: 04/29/25 17:30 Actual Procedures p Primary Section. Live female child at 1813 - Mary Lou Cassidy MD, [facility] Course (1) delivery delivered: (2) Encounter for induction of labor: Plan Patient was admitted late in the day for iol. Got turner, arom, epidural, pit and iupc. Was unable to get the patient into an adequate contraction pattern for labor and had intermittent nrfht. Discussion and proceeded with primary ltcs. QBL--737. SM fibroid required removal--see operative report. Her postop course was uncomplicated--tolerated regular diet, ambulated without issues, Turner removed and voided, pain controlled with oral pain meds. Discharge h/h 7.5/22.2. Was d/c home on posd #2. INstructions given and f/u in 6 weeks. Coding Level of Care Code None Diagnoses delivery delivered O82 Encounter for induction of labor Z34.90
== END 2025-05-01 12:55 | disposition home or self-care (01) | DRG 788 ==
LOC: 4S1 11:10 → 4E2 04-29 21:24